=== PATIENT | male | born 1960 | race African-American/Black ===

== ENCOUNTER 2021-04-29 18:21 | Emergency (ER) | payer OTHER ==
--- OUTSIDE RECORDS SUMMARY | 2021-04-29 18:27 | XMS REPORT | Continuity of Care Document ---
:1960 Author Organization [facility] t Address [address] [place] [address] [address] [place] [address] Care Team Providers Name Role Phone Javan Mills Jr. Primary Care Physician Elpidio MACARIO L Attending Clinician Unavailable Padma DENISE Attending Clinician Norman OLMEDO Attending Clinician PADMA Attending Clinician Unavailable Joe WASHINGTON Attending Clinician Poonam WASHINGTON Attending Clinician Torri WASHINGTON Attending Clinician JOE Attending Clinician Unavailable Nayeli Holguin Attending Clinician Doctor Unassigned, Name Attending Clinician Unavailable Renetta WASHINGTON S Attending Clinician Trish JACKSON Attending Clinician Unavailable Norman OLMEDO Admitting Clinician Torri WASHINGTON Admitting Clinician Payers Payer Name Policy Type Policy Number Effective Date Expiration Date S ource Problems Condition Condition Condition Status Onset Resolution Last Treating Co mments Source Name Details Category Date Date Treatment Clinician Date Cellulitis Cellulitis Disease Active 2020-04 U nivers of left of left 0-14 ity of foot foot 00:00: [address] Cellulitis Cellulitis Disease Active 2020-0 U nivers 6-21 ity of 00:00: [address] No known No known Disease Unive rs active active ity of problems problems [facility] Allergies, Adverse Reactions, Alerts Allergy Allergy Status Severity Reaction(s) Onset Inactive Treating Comm ents Source Name Type Date Date Clinician NO KNOWN Drug Active Univers ALLERGIE Class ity of S [facility] Social History Social Habit Start Date Stop Date Quantity Comments Source Exposure to Not sure University of SARS-CoV-2 [facility] (event) [place] Alcohol intake 2021-01-15 2021-01-15 Ex-drinker [facility] 00:00:00 00:00:00 (finding) [facility] Tobacco use and 2020-09-21 2020-09-21 Never used Universit y of exposure 00:00:00 00:00:00 [facility] Tobacco Comment 2020-09-21 2020-09-21 1 pk aday Universit y of 00:00:00 00:00:00 [facility] Sex Ass[birth year] At [birth year] Universit y of 00:00:00 00:00:00 [facility] Smoking Status Start Date Stop Date Source Current every day smoker 2020-09-21 00:00:00 Uni versity of [facility] Unknown if ever smoked Universit y of [facility] Medications Ordered Filled Start Stop Current Ordering Indication Dosage Frequency Signature Comments Components Source Medication Medication Date Date Medication? Clinician (SIG) Name Name ergocalcife 2020-04- No [id number] Take 1 Univers rol, 0-22 11-14 capsule by ity of vitamin d2, 00:00[place] 05[place] 1,250 mcg 00 :00 weekly for Medi hilary (50,000 4 doses. Branch unit) capsule ergocalcife 2020-04- No [id number] Take 1 Univers rol, 0-22 11-14 capsule by ity of vitamin d2, 00:00: 05:59 [place] 1,250 mcg 00 :00 weekly for Medi hilary (50,000 4 doses. Branch unit) capsule terbinafine 2020-04 Yes Topical, Un liana HCL 0-19 BID, First ity of (LAMISIL) 1 01:00: dose on [place] as % cream 00 [facility] 01/18/21 Branch at 2000, Until Discontinu ed, Routine amLODIPine 2020-04- No [id number] 5mg Take 1 Univers 5 mg tablet 0-19 11-19 tablet by it y of 00:00: 05:59 mouth [place] 00 :00 daily for Medical 30 days. Branch hydroCHLORO 2020-04- No [id number] 25mg Take 1 Univers thiazide 25 0-19 11-19 tablet by it y of mg tablet 00:00: 05:59 mouth [place] 00 :00 daily for Medical 30 days. Branch lisinopriL 2020-04- No [id number] 20mg Take 1 Univers 20 mg 0-19 11-19 tablet by ity of tablet 00:00: 05:59 mouth [place] 00 :00 daily for Medical 30 days. Branch aspirin 81 2020-04- No [id number] 81mg Take 1 Univers mg chewable 0-19 11-19 tablet by it y of tablet 00:00: 05:59 mouth [place] 00 :00 daily with Medical breakfast Reading for 30 days. amLODIPine 2020-04- No [id number] 5mg Take 1 Univers 5 mg tablet 0-19 11-19 tablet by it y of 00:00: 05:59 mouth [place] 00 :00 daily for Medical 30 days. Branch hydroCHLORO 2020-04- No [id number] 25mg Take 1 Univers thiazide 25 0-19 11-19 tablet by it y of mg tablet 00:00: 05:59 mouth [place] 00 :00 daily for Medical 30 days. Branch lisinopriL 2020-04- No [id number] 20mg Take 1 Univers 20 mg 0-19 11-19 tablet by ity of tablet 00:00: 05:59 mouth [place] 00 :00 daily for Medical 30 days. Branch aspirin 81 2020-04- No [id number] 81mg Take 1 Univers mg chewable 0-19 11-19 tablet by it y of tablet 00:00: 05:59 mouth [place] 00 :00 daily with Medical breakfast Reading for 30 days. sodium 2020-04 Yes [id number] Apply to U nivers hypochlorit 0-18 area(s) 2 ity of e 0.25% 00:00: (two) [place] solution 00 times Medical daily. Branch sodium 2020-04 Yes [id number] Apply to U nivers hypochlorit 0-18 area(s) 2 ity of e 0.25% 00:00: (two) [place] solution 00 times Medical daily. Branch atorvastati 2020-04- No [id number] 40mg Take 1 Univers n 40 mg 0-18 11-18 tablet by ity of tablet 00:00: 05:59 mouth at [place] 00 :00 bedtime Medical for 30 Branch days. atorvastati 2020-04- No [id number] 40mg Take 1 Univers n 40 mg 0-18 11-18 tablet by ity of tablet 00:00: 05:59 mouth at [place] 00 :00 bedtime Medical for 30 Branch days. terbinafine 2020-04- No [id number] Apply to Univers HCL 1 % 0-18 11-02 area(s) 2 ity of cream 00:00: 04:59 (two) [place] 00 :00 times Medical daily for Branch 14 days. terbinafine 2020-04- No [id number] Apply to Univers HCL 1 % 0-18 11-02 area(s) 2 ity of cream 00:00: 04:59 (two) [place] 00 :00 times Medical daily for Branch 14 days. cephALEXin 2020-04- No [id number] 500mg Take 1 Univers 500 mg 0-18 10-24 capsule by ity of capsule 00:00: 04:59 mouth [place] 00 :00 every 6 Medical (six) Branch hours for 5 days. cephALEXin 2020-04- No [id number] 500mg Take 1 Univers 500 mg 0-18 10-24 capsule by ity of capsule 00:00: 04:59 mouth [place] 00 :00 every 6 Medical (six) Branch hours for 5 days. nicotine 2020-04 Yes 1{patch 1 Patch, Un liana (NICODERM) 0-17 } Topical, ity o f 21 mg/24 hr 03:00: Administer [place] patch 1 00 over 24 Medical Patch Hours, Branch Q24H, First dose (after last modificati on) on 01/16/21 at 2200, Until Discontinu ed, Routine clotrimazol 2020-04- No Topical, U nivers e 0-16 10-16 QHS, First ity of (LOTRIMIN) 02:00: 23:31 dose on [place] 1 % topical 00 :48 Fri Medical cream 01/15/21 Branch at 2100, Until Discontinu ed, Routine magnesium 2020-04- No 400mg 400 mg, Uni vers oxide 0-16 10-20 Oral, BID, ity of (MAG-OX 01:00: 00:59 8 doses, [place] 400) tablet 00 :00 First dose Me dical 400 mg on Mon01/15/21 at 2000, Last dose on Mon01/19/21 at 0800, Routine cephALEXin 2020-04 Yes 500mg 500 mg, Uni vers (KEFLEX) 0-15 Oral, Q6H ity of capsule 500 21:00: ABX, First [place] mg 00 dose on Medical Mon01/15/21 at 1600, Until Discontinu ed, MADDI
Re ason for Anti-Infec tive: Documented Infection< br>Documen evelia Infection Site: Skin / Soft Tissue<br& gt;Duratio n of Therapy: 10 days lactobacill 2020-04 Yes .5mg 0.5 mg, Uni vers us 0-15 Oral, ity of acidophilus 14:00: DAILY, [place] tablet 0.5 00 First dose Med ical mg on Mon01/15/21 at 0900, Until Discontinu ed, Routine enoxaparin 2020-04 Yes 30mg 30 mg, Unive rs (LOVENOX) 0-15 Subcutaneo ity of injection 14:00: [place], DAILY, [place] 30 mg 00 First dose Medical on Mon01/15/21 at 0900, Until Discontinu ed, Routine hydroCHLORO 2020-04 Yes 25mg 25 mg, Univ ers thiazide 0-15 Oral, ity of (ESIDRIX) 14:00: DAILY, [place] tablet 25 00 First dose Medi hilary mg on Mon01/15/21 at 0900, Until Discontinu ed, Routine lisinopriL 2020-04 Yes 20mg 20 mg, Unive rs (PRINIVIL,Z 0-15 Oral, ity of ESTRIL) 14:00: DAILY, [place] tablet 20 00 First dose Medi hilary mg on Mon01/15/21 at 0900, Until Discontinu ed, Routine amLODIPine 2020-04 Yes 10mg 10 mg, Unive rs (NORVASC) 0-15 Oral, ity of tablet 10 14:00: DAILY, [place] mg 00 First dose Medical on Mon Branch 01/15/21 at 0900, Until Discontinu ed, Routine ergocalcife 2020-04 Yes [id number] 50,000 Un liana rol 0-15 Units, ity of (vitamin 14:00: Oral, [place] d2) 00 QWEEKLY, Medical (CALCIFEROL First dose Br anch ) capsule on Mon 50,000 01/15/21 Units at 0900, Until Discontinu ed, Routine sodium 2020-04 Yes Topical, Univers hypochlorit 0-15 BID, First it y of e 0.25% 13:45: dose on (DAKIN'S 00 Mon Medical SOLUTION) 01/15/21 Branch solution at 0845, Until Discontinu ed, Routine docusate 2020-04 Yes 100mg 100 mg, Unive rs (COLACE) 0-15 Oral, BID, ity o f capsule 100 13:00: First dose [place] mg 00 on Mon Medical 01/15/21 Branch at 0800, Until Discontinu ed, Routine vancomycin 2020-04- No 1000mg 1,000 mg, Univers (VANCOCIN) 0-15 10-15 IV ity of 1,000 mg in 11:00: 20:05 Piggyback, [place] NaCl 0.9% 00 :32 Q12H ABX, Medic al (NS) 250 mL First dose Br anch VIAL-MATE (after IV last piggyback reorder) on Mon01/15/21 at 0600, Until Discontinu ed, Administer over 60 Minutes, 250 mL
Reas on for Anti-Infec tive: Documented Infection< br>Documen evelia Infection Site: Skin / Soft Tissue
Duration of Therapy: 7 days nicotine 2020-04- No 1{patch 1 Patch, U nivers (NICODERM) 0-15 -17 } Topical, ity of 21 mg/24 hr 05:45: 02:42 Administer [place] patch 1 00 :59 over 24 Medical Patch Hours, Branch Q24H, First dose on Mon01/15/21 at 0045, Until Discontinu ed, Routine cyanocobala 2020-04 Yes 1000ug 1,000 mcg, Univers min 0-15 Intramuscu ity of (VITAMIN 05:30: lar, Q24H, [place] B12) 00 First dose Medical injection on Mon Branch 1,000 mcg 01/15/21 at 0030, Until Discontinu ed, Routine ceFEPIme 2020-04 No 2000mg 2,000 mg, U nivers (MAXIPIME) 0-15 10-15 IV ity of 2,000 mg in 05:30: 20:05 Piggyback, [place] NaCl 0.9% 00 :32 Q12H ABX, Medic al (NS) 100 mL First dose Br anch MINI-BAG on Mon01/15/21 at 0030, Until Discontinu ed, Administer over 30 Minutes, 100 mL
Reas on for Anti-Infec tive: Empiric Therapy for Suspected Infection& lt;br>Empi ileana Therapy Site: Wound
D uration of therapy: 7 days amLODIPine 2020-04 No 2.5mg 2.5 mg, Un liana (NORVASC) 0-15 10-15 Oral, ity of tablet 2.5 05:30: 05:45 ONCE, 1 [place] mg 00 :00 dose, On Medical Fri Branch 01/15/21 at 0030, MADDI lisinopriL 2020-04- No 10mg 10 mg, Univ ers (PRINIVIL,Z 0-15 10-15 Oral, ity of ESTRIL) 05:30: 05:46 ONCE, 1 [place] tablet 10 00 :00 dose, On Medica l mg Mon Branch 01/15/21 at 0030, MADDI aspirin 2020-04 Yes 81mg 81 mg, Univers chewable 0-15 Oral, QAM ity of tablet 81 04:45: WITH [place] mg 00 BREAKFAST, Medical First dose Branch on Mon01/14/21 at 2345, Until Discontinu ed, Routine ondansetron 2020-04 Yes 4mg 4 mg, Slow Univers (ZOFRAN 0-15 IV Push, ity of (PF)) 04:29: Q6HPRN, [place] injection 4 00 Starting Medi hilary mg on [place] Branch 01/14/21 at 2329, Until Discontinu ed, Routine, Nausea and Vomiting (N/V) hydralAZINE 2020-04 Yes 10mg 10 mg, Univ ers (APRESOLINE 0-15 Slow IV ity o f ) injection 04:24: Push, [place] 10 mg 57 Q4HPRN, Medical Starting Branch on Mon01/14/21 at 2324, Until Discontinu ed, Routine, SBP > 190 or DBP > 110
Ind ication: Hypertensi ve Emergency vancomycin 2020-04- No 15mg/kg 1,000 mg Univers (VANCOCIN) 0-15 10-15 (rounded ity of 1,000 mg in 00:15: 00:30 from [place] NaCl 0.9% 00 :00 1,000.5 mg Medi hilary (NS) 250 mL = 15 mg/kg Br anch VIAL-MATE ?66.7 kg), IV IV piggyback Piggyback, ONCE, 1 dose, On [place] 01/14/21 at 1915, Administer over 60 Minutes, 250 mL
Reas on for Anti-Infec tive: Documented Infection& lt;br>Docu mented Infection Site: Skin / Soft Tissue
Duration of Therapy: 7 days aspirin 81 0 Yes [id number] 81mg Take 1 Univers mg chewable 6-25 tablet by ity of tablet 00:00: mouth [place] 00 daily. Medical Branch coenzyme Yes [id number] 100mg Take 1 U nivers Q10 100 mg 6-25 capsule by ity of softgel 00:00: mouth [place] 00 daily. Medical Branch enoxaparin Yes [id number] 40mg inject 0.4 Univers 40 mg/0.4 6-25 mL under ity of mL 00:00: the skin [place] injection 00 daily. Medical Branch NaCl 0.9% Yes [id number] 2g Infuse 2 g Univers (NS) PgBk 6-25 every 12 ity of 100 mL with 00:00: (twelve) [place] ceFEPIme 2 00 hours. Medical gram SolR 2 Branch g cyanocobala Yes [id number] 1000ug inject 1 Univers min 1,000 6-25 mL under ity of mcg/mL 00:00: the skin [place] injection 00 every 24 Medica l (twenty-fo Branch ur) hours. cholecalcif Yes [id number] 2000U Take 2 Univers khalif, 6-25 tablets by ity of vitamin D3, 00:00: mouth [place] 25 mcg 00 daily. Medical (1,000 Branch unit) tablet enoxaparin 2020- No [id number] 40mg inject 0.4 Univers 40 mg/0.4 6-25 10-14 mL under ity o f mL 00:00: 00:00 the skin [place] injection 00 :00 daily. Medical Branch NaCl 0.9% 2020- No [id number] 2g Infuse 2 g Univers (NS) PgBk 6-25 10-14 every 12 ity o f 100 mL with 00:00: 00:00 (twelve) [place] ceFEPIme 2 00 :00 hours. Medical gram SolR 2 Branch g cyanocobala 2020- No [id number] 1000ug inject 1 Univers min 1,000 6-25 10-14 mL under ity o f mcg/mL 00:00: 00:00 the skin [place] injection 00 :00 every 24 Medica l (twenty-fo Branch ur) hours. cholecalcif 2020- No [id number] 2000U Take 2 Univers khalif, 6-25 10-14 tablets by ity of vitamin D3, 00:00: 00:00 mouth [place] 25 mcg 00 :00 daily. Medical (1,000 Branch unit) tablet aspirin 81 2020- No [id number] 81mg Take 1 Univers mg chewable 6-25 10-14 tablet by it y of tablet 00:00: 00:00 mouth [place] 00 :00 daily. Medical Branch coenzyme 2020- No [id number] 100mg Take 1 Univers Q10 100 mg 6-25 10-14 capsule by it y of softgel 00:00: 00:00 mouth [place] 00 :00 daily. Medical Branch lidocaine 2020- No 5mL 5 mL, Univer s 1% (PF) 09-24 06-24 Subcutaneo ity o f (XYLOCAINE) 13:15: 13:15 , ONCE, [place] injection 5 00 :00 1 dose, Medic al mL [place] Branch 09/24/20 at 0815, Routine NaCl 0.9% Yes 10mL 10 mL, Univer s (NS) 624 Slow IV ity of injection 13:00: Push, PRN, [place] 10 mL 27 Starting Medical [place] Branch 09/24/20 at 0800, Until Discontinu ed, Routine, line maintenanc e atorvastati Yes [id number] 40mg Take 1 Univers n 40 mg 6-24 tablet by ity of tablet 00:00: mouth at [place] 00 bedtime. Medical Branch vancomycin/ Yes [id number] 1250mg 1,250 mg Univers 0.9 % sod 6-24 by IV ity of chloride 00:00: Infusion [place] (VANCOMYCIN 00 route Medical 1250 MG IN every 12 Branc h NS 250 ML) (twelve) 1.25 hours. gram/250 mL Soln 0.9 % Yes [id number] 10mL Inject 10 Un liana sodium 6-24 mL as ity of chloride 00:00: directed [place] (NACL 0.9%, 00 as needed Med ical NS,) (line Branch injection maintenanc e). sodium Yes [id number] Apply to U nivers hypochlorit 6-24 area(s) 2 ity of e 0.25% 00:00: (two) [place] solution 00 times Medical daily. Branch lactobacill Yes [id number] .5mg Take 1 Univers us 6-24 tablet by ity of acidophilus 00:00: mouth 2 [place] 00 (two) Medical times Branch daily. acetaminoph 2021- No [id number] 650mg Take 2 Univers en 325 mg 6-24 06-25 tablets by ity of tablet 00:00: 04:59 mouth [place] 00 :00 every 6 Medical (six) Branch hours as needed for Pain (scale 1-3). atorvastati 2020- No [id number] 40mg Take 1 Univers n 40 mg 6-24 10-18 tablet by ity of tablet 00:00: 00:00 mouth at [place] 00 :00 bedtime. Medical Branch acetaminoph 2020- No [id number] 650mg Take 2 Univers en 325 mg 6-24 10-14 tablets by ity of tablet 00:00: 00:00 mouth [place] 00 :00 every 6 Medical (six) Branch hours as needed for Pain (scale 1-3). sodium 2020- No [id number] Apply to Univers hypochlorit 6-24 10-14 area(s) 2 it y of e 0.25% 00:00: 00:00 (two) [place] solution 00 :00 times Medical daily. Branch lactobacill 2020- No [id number] .5mg Take 1 Univers us 09-24 10-14 tablet by ity of acidophilus 00:00: 00:00 mouth 2 [place] 00 :00 (two) Medical times Branch daily. vancomycin/ 2020- No [id number] 1250mg 1,250 mg Univers 0.9 % sod 09-24 10-14 by IV ity of chloride 00:00: 00:00 Infusion [place] (VANCOMYCIN 00 :00 route Medical 1250 MG IN every 12 Branc h NS 250 ML) (twelve) 1.25 hours. gram/250 mL Soln 0.9 % 2020- No [id number] 10mL Inject 10 U nivers sodium 09-24 10-14 mL as ity of chloride 00:00: 00:00 directed [place] (NACL 0.9%, 00 :00 as needed Med ical NS,) (line Branch injection [facility]). vancomycin Yes 1250mg 1,250 mg, Univers 1250 mg in 09-23 IV ity of NS 250 mL 16:45: Infusion, [place] as RTU IV 00 Q12H ABX, Medical Piggyback First dose Bran ch 1,250 mg on Mon09/23/20 at 1145, Until Discontinu ed
Reas on for Anti-Infec tive: Documented Infection< br>Documen evelia Infection Site: Skin / Soft Tissue
Duration of Therapy: 14 days atorvastati Yes 40mg 40 mg, Univ ers n (LIPITOR) 09-23 Oral, QHS, it y of tablet 40 02:00: First dose [place] mg 00 on Mon Medical 09/22/20 at Branch 2100, Until Discontinu ed, Routine cyanocobala Yes 1000ug 1,000 mcg, Univers min 09-22 Subcutaneo ity of (VITAMIN 14:45: us, Q24H, [place] B12) 00 First dose Medical injection on Mon Branch 1,000 mcg 09/22/20 at 0945, Until Discontinu ed, Routine coenzyme Yes 100mg 100 mg, Unive rs Q10 (CO 09-22 Oral, ity of Q-10) 14:00: DAILY, [place] softgel 100 00 First dose Me dical mg on [facility] 09/22/20 at 0900, Until Discontinu ed, Routine aspirin 2020-0 Yes 81mg 81 mg, Univers chewable 09-22 Oral, ity of tablet 81 14:00: DAILY, [place] mg 00 First dose Medical on [facility] 09/22/20 at 0900, Until Discontinu ed, Routine lisinopriL 2020-0 Yes 20mg 20 mg, [facility] (PRINIVIL,Z 09-22 Oral, ity of ESTRIL) 14:00: DAILY, [place] tablet 20 00 First dose Medi hilary mg on [facility] 09/22/20 at 0900, Until Discontinu ed, Routine hydroCHLORO 2020-0 Yes 25mg 25 mg, Univ ers thiazide 09-22 Oral, QAM, ity o f (ESIDRIX) 14:00: First dose [place] tablet 25 00 on [facility] Medical mg 09/22/20 at Branch 0900, Until Discontinu ed, Routine amLODIPine 2020-0 Yes 10mg 10 mg, [facility] (NORVASC) 09-22 Oral, ity of tablet 10 14:00: DAILY, [place] mg 00 First dose Medical on [facility] 09/22/20 at 0900, Until Discontinu ed, Routine cholecalcif 2020-0 Yes 2000U 2,000 Univ ers khalif 09-22 Units, ity of (vitamin 13:45: Oral, [place] D3) tablet 00 DAILY, Medical 2,000 Units First dose Br anch on [facility] 09/22/20 at 0845, Until Discontinu ed, Routine lactobacill 2020-0 Yes .5mg 0.5 mg, Uni vers us 09-22 Oral, BID, ity of acidophilus 00:15: First dose [place] tablet 0.5 00 on [facility] Medical mg 09/21/20 at Branch 1915, Until Discontinu ed, Routine sodium 2020-0 Yes Topical, Univers hypochlorit 09-21 BID, First it y of e 0.25% 22:45: dose on [place] (DAKIN'S 00 Mon Medical SOLUTION) 09/21/20 at [facility] solution 1745, Until Discontinu ed, Routine enoxaparin 2020-0 Yes 40mg 40 mg, Unive rs (LOVENOX) 09-21 Subcutaneo ity of injection 22:00: us, DAILY, [place] 40 mg 00 First dose Medical on Mon Branch 09/21/20 at 1700, Until Discontinu ed, Routine ceFEPIme 2020- No 2000mg 2,000 mg, U nivers (MAXIPIME) 09-21 IV ity of 2,000 mg in 20:15: 20:14 Piggyback, [place] NaCl 0.9% 00 :00 Q12H ABX, Medic al (NS) 100 mL 14 doses, [facility] MINI-BAG First dose on Mon09/21/20 at 1515, Last dose on Mon09/28/20 at 0315, 100 mL
Reas on for Anti-Infec tive: Documented Infection< br>Documen evelia Infection Site: Skin / Soft Tissue
Duration of Therapy: 7 days piperacilli 2020- No 3.375g 3.375 g, Univers n-tazobacta 09-21 IV ity of m (ZOSYN) 17:15: 16:48 Piggyback, [place] 3.375 g in 00 :00 ONCE, 1 Medica l NaCl 0.9% dose, [facility] Bran h (NS) 100 mL 09/21/20 at MINI-BAG 1215, 100 mL
Reas on for Anti-Infec tive: Documented Infection< br>Documen evelia Infection Site: Skin / Soft Tissue
Duration of Therapy: Other (see Comments) acetaminoph Yes 650mg 650 mg, Un liana en 09-21 Oral, ity of (TYLENOL) 16:45: Q6HPRN, [place] tablet 650 46 Starting Medic al mg Mon Branch 09/21/20 at 1145, Until Discontinu ed, Routine, Pain (scale 1-3) vancomycin 2020- No 15mg/kg 1,000 mg Univers (VANCOCIN) 09-21 (rounded ity of 1,000 mg in 16:45: 14:02 from 1,020 [place] NaCl 0.9% 00 :04 mg = 15 Medical (NS) 250 mL mg/kg ?68 [facility] VIAL-MATE kg), IV IV Piggyback, piggyback Q12H ABX, First dose on Mon09/21/20 at 1145, Until Discontinu ed, 250 mL
Reas on for Anti-Infec tive: Documented Infection< br>Docu mented Infection Site: Skin / Soft Tissue
Duration of Therapy: 14 days lisinopril 2018-0 Yes 20mg Take 1 Unive rs 20 mg 3-09 tablet by ity of tablet 00:00: mouth [place] 00 daily. Medical Branch hydroCHLORO 2018-0 Yes 25mg Take 1 Univ ers thiazide 25 3-09 tablet by ity of mg tablet 00:00: mouth [place] 00 every Medical morning. Branch amLODIPine 2018-0 Yes 10mg Take 1 Unive rs 10 mg 3-09 tablet by ity of tablet 00:00: mouth [place] 00 daily. Medical Branch lisinopril 2018-0 Yes 20mg Take 1 Unive rs 20 mg 3-09 tablet by ity of tablet 00:00: mouth [place] 00 daily. Medical Branch hydroCHLORO 2018-0 Yes 25mg Take 1 Univ ers thiazide 25 3-09 tablet by ity of mg tablet 00:00: mouth [place] 00 every Medical morning. Branch amLODIPine 2018-0 Yes 10mg Take 1 Unive rs 10 mg 3-09 tablet by ity of tablet 00:00: mouth [place] 00 daily. Medical Branch lisinopril 2018-0 Yes 20mg Take 1 Unive rs 20 mg 3-09 tablet by ity of tablet 00:00: mouth [place] 00 daily. Medical Branch hydroCHLORO 2018-0 Yes 25mg Take 1 Univ ers thiazide 25 3-09 tablet by ity of mg tablet 00:00: mouth [place] 00 every Medical morning. Branch amLODIPine 2018-0 Yes 10mg Take 1 Unive rs 10 mg 3-09 tablet by ity of tablet 00:00: mouth [place] 00 daily. Medical Branch lisinopril 2018-0 2020- No 20mg Take 1 Univ ers 20 mg 3-09 06-24 tablet by ity of tablet 00:00: 00:00 mouth [place] 00 :00 daily. Medical Branch hydroCHLORO 2018-0 2020- No 25mg Take 1 Uni vers thiazide 25 3-09 06-24 tablet by it y of mg tablet 00:00: 00:00 mouth [place] 00 :00 every Medical morning. Branch amLODIPine 2017-0 2020- 10mg Take 1 Univ ers 10 mg 06-09 tablet by ity of tablet 00:00: 00:00 mouth [place] 00 :00 daily. Medical Branch Immunizations Ordered Filled Immunization Date Status Comments Sour e Immunization Name Name Td 2016-04-13 Completed University of 00:00:00 [facility] Branch Td 2016-04-13 Completed University of 00:00:00 [facility] Branch Td 2016-04-13 Completed University of 00:00:00 [place] [facility] Td 2016-04-13 Completed University of 00:00:00 [place] [facility] Td 2016-04-13 Completed University of 00:00:00 [facility] Td 2016-04-13 Completed University of 00:00:00 [facility] Vital Signs Vital Name Observation Time Observation Value Comments Source Systolic blood 2021-01-18 16:00:00 108 mm[Hg] Univer sity of pressure [facility] Diastolic blood 2021-01-18 16:00:00 74 mm[Hg] Unive rsity of [facility] Heart rate 2021-01-18 16:00:00 72 /min [facility] Body temperature 2021-01-18 16:00:00 36.17 Cristiana [facility] Respiratory rate 2021-01-18 16:00:00 16 /min [facility] Oxygen saturation in 2021-01-18 16:00:00 99 /min [facility] Arterial blood by [facility] Pulse oximetry Branch Body weight 2021-01-17 08:45:00 64.439 kg [facility] BMI 2021-01-17 08:45:00 20.38 kg/m2 [facility] Body height 2021-01-15 03:21:00 177.8 cm [facility] Systolic blood 2020-09-25 09:00:00 133 mm[Hg] Univer sity of [facility] Diastolic blood 2020-09-25 09:00:00 75 mm[Hg] Unive rsity of [facility] Heart rate 2020-09-25 09:00:00 61 /min [facility] Body temperature 2020-09-25 09:00:00 36.72 Cristiana [facility] ersity of [place] [facility] Respiratory rate 2020-09-25 09:00:00 18 /min Univ ersity of [place] [facility] Oxygen saturation in 2020-09-25 09:00:00 98 /min University of Arterial blood by [facility] Pulse oximetry Branch Body weight 2020-09-22 08:15:00 63.458 kg [facility] ty [facility] [place] [facility] BMI 2020-09-22 08:15:00 20.07 kg/m2 [facility] [place] [facility] Body height 2020-09-21 17:30:00 177.8 cm [facility] [place] [facility] Heart rate 2020-07-10 22:07:00 55 /min [facility] [place] [facility] Body temperature 2020-07-10 22:07:00 36.67 Cristiana Univ [facility] Respiratory rate 2020-07-10 22:07:00 14 /min [facility] Body weight 2020-07-10 22:07:00 68.04 kg [facility] BMI 2020-07-10 22:07:00 21.52 kg/m2 [facility] Oxygen saturation in 2020-07-10 22:07:00 100 /min [facility] Arterial blood by [facility] Pulse oximetry Branch Systolic blood 2020-06-28 04:00:00 134 mm[Hg] [facility] Diastolic blood 2020-06-28 04:00:00 95 mm[Hg] [facility] [place] [facility] Heart rate 2020-06-28 04:00:00 61 /min [facility] Body temperature 2020-06-28 04:00:00 36.11 Cristiana [facility] Respiratory rate 2020-06-28 04:00:00 12 /min [facility] Oxygen saturation in 2020-06-28 04:00:00 100 /min [facility] Arterial blood by [facility] Pulse oximetry Branch Body height 2020-06-28 03:00:00 177.8 cm [facility] Body weight 2020-06-28 03:00:00 68.04 kg [facility] BMI 2020-06-28 03:00:00 21.52 kg/m2 [facility] Procedures Procedure Date / Time Performing Clinician Source Performed BASIC METABOLIC PANEL 2021-01-18 10:14:00 Fredy Austin [facility] (NA, K, CL, CO2, GLUCOSE, Medica l Branch BUN, CREATININE, CA) CBC WITH DIFF 2021-01-18 10:14:00 [facility] CBC WITH DIFF 2021-01-17 10:41:00 [facility] MAGNESIUM 2021-01-16 09:34:00 Torri [facility] COMP. METABOLIC PANEL 2021-01-16 09:34:00 Torri jeremiah [facility] ([id number]) [facility] CBC WITH DIFF 2021-01-16 09:34:00 [facility] N-TERMINAL PRO-BNP 2021-01-16 09:34:[address] [facility] URINALYSIS 2021-01-16 03:16:00 Pop Mattson [facility] LOWER EXTREMITY ARTERIAL 2021-01-15 18:06:37 Julianne Wild [facility] DUPLEX BILATERAL - BY Medical Br anch VASCULAR LAB VITAMIN B12, LEVEL 2021-01-15 09:50:[address] [facility] FERRITIN SERUM 2021-01-15 09:49:00 Julianne Wild [facility] FOLATE 2021-01-15 09:49:00 Torri jeremiah [facility] SEDIMENTATION RATE 2021-01-15 09:49:[address] [facility] C-REACTIVE PROTEIN 2021-01-15 09:48:[address] [facility] LIPID PANEL ([id number])(TOTAL 2021-01-15 09:48:[address] [facility], HDL) VITAMIN D, 25-OH 2021-01-15 09:48:00 Julianne Wild [facility] THYROID STIMULATING 2021-01-15 09:47:[address] [facility] HORMONE [facility] MAGNESIUM 2021-01-15 09:46:00 Torri [facility] COMP. METABOLIC PANEL 2021-01-15 09:46:00 Torri [facility] ([id number]) Medical Branch CBC WITH DIFF 2021-01-15 09:46:00 Torri [facility] N-TERMINAL PRO-BNP 2021-01-15 09:46:00 Torri [facility] PROCALCITONIN 2021-01-15 09:46:00 Torri [facility] ISRAEL MULTI LEVEL - BY 2021-01-14 22:15:00 [facility] LACTIC ACID WHOLE BLOOD 2021-01-14 21:31:00 Pop Mattson [facility] BLOOD CULTURE SCREEN 2021-01-14 21:30:00 [facility] 2021-01-14 20:18:00 Torri [facility] URIC ACID 2021-01-14 20:18:00 Torri [facility] MAGNESIUM 2021-01-14 20:18[facility] 2021-01-14 [id number] (ALB,T.PRO,BILI Medical Branch T,BU/BC,ALT,AST,ALK PHOS) BASIC METABOLIC PANEL 2021-01-14 20:18:00 Pop Mattson [facility] (NA, K, CL, CO2, GLUCOSE, Medica l Branch BUN, CREATININE, CA) CBC WITH DIFF 2021-01-14 20:18[facility]OGLOBIN 2021-01-14 20:18:[facility] N-TERMINAL PRO-BNP 2021-01-14 20:18:00 Torri [facility] COVID-19 (ID NOW RAPID 2021-01-14 20:18[facility] LAB ONLY COVID 2021-01-14 20:18:00 Pop Mattson [facility] INTERPRETATION [facility] CONSENT/REFUSAL FOR 2021-01-14 19:22:31 Doctor UnassGina greco [facility] DIAGNOSIS AND TREATMENT [place] [facility] VANCOMYCIN TROUGH 2020-09-25 03:27:00 Norman [facility] XR CHEST 1 VW 2020-09-24 16:22:22 [facility] COMP. METABOLIC PANEL 2020-09-24 08:04:00 Torri jeremiah [facility] ([id number]) [facility] CBC WITH DIFF 2020-09-24 08:04:00 [facility] COMP. METABOLIC PANEL 2020-09-23 08:10:00 Julianne Wild [facility] ([id number]) [facility] CBC WITH DIFF 2020-09-23 08:10:00 Torri jeremiah [facility] VANCOMYCIN TROUGH 2020-09-23 03:49:00 Chelly Menendez [facility] ISRAEL MULTI LEVEL - BY 2020-09-22 16:52:59 Dipak Levin [facility] VASCULAR LAB Medical Branch MAGNESIUM 2020-09-22 08:44:00 Torri [facility]remiah [facility] COMP. METABOLIC PANEL 2020-09-22 08:44:00 Torri jeremiah [facility] ([id number]) [facility] CBC WITH DIFF 2020-09-22 08:44:00 Dipak Levin [facility] N-TERMINAL PRO-BNP 2020-09-22 08:44:[address] [facility] VITAMIN B12, LEVEL 2020-09-22 01:11:[address] [facility] C-REACTIVE PROTEIN 2020-09-22 01:11:[address] [facility] SEDIMENTATION RATE 2020-09-22 01:11:[address] [facility] PROTHROMBIN TIME / INR 2020-09-22 01:11:00 Julianne Wild [facility] VITAMIN D, 25-OH 2020-09-22 01:11:00 Torri [facility] PROCALCITONIN 2020-09-22 01:11:00 Torri [facility] DUPLEX VENOUS LEG LEFT - 2020-09-21 20:06:22 Dipak Levin [facility] BY VASCULAR LAB Medical Branch LOWER EXTREMITY ARTERIAL 2020-09-21 20:06:16 Dipak Levin [facility] DUPLEX BILATERAL - BY Medical Br anch VASCULAR LAB LACTIC ACID WHOLE BLOOD 2020-09-21 19:12:00 Ken Diaz [facility] CT FOOT LEFT WO CONTRAST 2020-09-21 17:10:00 Dipak Levin [facility] XR FOOT 3+ VW BILATERAL 2020-09-21 15:14:49 Ken Diaz [facility] COVID-19 (ID NOW RAPID 2020-09-21 15:04:00 Ken Diaz [facility] TESTING) Medical Branch LAB ONLY COVID 2020-09-21 15:04:00 Ken Diaz [facility] INTERPRETATION [facility] BLOOD CULTURE SCREEN 2020-09-21 15:02:00 Ken Diaz [facility] PHOSPHORUS 2020-09-21 15:02:00 Torri [facility] CREATINE KINASE 2020-09-21 15:02:00 Torri [facility] URIC ACID 2020-09-21 15:02:00 Torri [facility] MAGNESIUM 2020-09-21 15:02:00 Torri [facility] THYROID STIMULATING 2020-09-21 15:02:[address] [facility] HORMONE [facility] HEPATIC FUNCTION PANEL 2020-09-21 15:02:00 Ken Diaz [facility] ([id number]) (ALB,T.PRO,BILI Medical Branch T,BU/BC,ALT,AST,ALK PHOS) BASIC METABOLIC PANEL 2020-09-21 15:02:00 Ken Diaz [facility] (NA, K, CL, CO2, GLUCOSE, Medica l Branch BUN, CREATININE, CA) LIPID PANEL ([id number])(TOTAL 2020-09-21 15:02:[address] [facility] CHOLESTEROL, [facility] TRIGLYCERIDES, HDL) CBC WITH DIFF 2020-09-21 15:02:00 Ken Diaz [facility] GLYCOSYLATED HEMOGLOBIN 2020-09-21 15:02:00 Dipak Levin [facility] (A1C) [facility] N-TERMINAL PRO-BNP 2020-09-21 15:02:[address] [facility] LACTIC ACID WHOLE BLOOD 2020-09-21 15:02:00 Ken Diaz [facility] CONSENT/REFUSAL FOR 2020-09-21 14:05:44 Doctor Unassigned, [facility] DIAGNOSIS AND TREATMENT [place] [facility] NOTICE OF PRIVACY 2020-07-10 21:21:32 Doctor Unassfannie, [facility] PRACTICES [place] [facility] CONSENT/REFUSAL FOR 2020-07-10 21:21:13 Doctor Unassigned, [facility] DIAGNOSIS AND TREATMENT [place] [facility] ED LACERATION REPAIR 2020-06-28 03:47:00 Hardik Jackson [facility] Encounters Start End Encounter Admission Attending Care Care Encounter Source Date/Time Date/Time Type Type Clinicians Facility Department ID 2021-01-20 2021-01-20 Transition Liat Magallanes [id number] Univers 00:00:00 00:00:00 of Care Blanca Walsh [id number] [place] [id number] [facility] 403 Branch 2021-01-14 2021-01-18 Hospital Pop Mattson [facility] 1.2.840. [id number] Univers 14:27:00 16:02:00 Encounter Fredy Austin [id number] [place] [id number] [facility] 080 Branch 2021-01-14 2021-01-14 Emergency X PADMA [facility] ERT [id number] Univers 14:27:00 14:27:00 POP [facility] 2020-09-21 2020-09-25 Hospital Ken Diaz [facility] [id number] Univers 09:12:00 11:40:00 Encounter Dipak Levin [id number] ity of [place] 4.2.7.2.686 [facility] [id number] [place] [id number] Branch 2020-09-21 2020-09-21 [facility] [id number] Univers 09:12:00 09:12:00 KEN [facility] 2020-07-10 2020-07-10 Emergency Anaya Garcia [facility] [id number] Univers 16:51:00 18:42:00 Nayeli Colmenares [id number] i ty of [place] 4.2.7.2.686 [facility] [id number] [place] [address] Branch 2020-07-10 2020-07-10 Emergency X [facility] ERT [id number] Univers 16:22:00 16:22:00 ity [facility] 2020-07-10 2020-07-10 Orders Doctor FABIOLA [id number] Univers 00:00:00 00:00:00 Only Unassigned, BERNADINE 350.1.13.10 ity of [place] [facility] 4.2.7.2.686 D[place] [id number] [facility] 009 Branch 2020-06-27 2020-06-27 Emergency [facility] [id number] Univers 22:01:00 23:13:00 Hardik Colmenares [id number] ity of [place] 4.2.7.2.686 [facility] [id number] [place] 020034 [place] 2020-06-27 2020-06-27 Emergency X [facility] ERT [id number] Univers 22:01:00 22:01:00 HARDIK [facility] Results Test Description Test Time Test Comments Results Result Comments Source BASIC METABOLIC PANEL (NA, K, CL, CO2, GLUCOSE, BUN, 2021-01 12:05:46 CREATININE, CA) Test Item Value Reference Range Interpretation Comme nts NA (test code = 8336896570) 135 mmol/L 135-145 K (test code = 1444374053) 4.3 mmol/L 3.5-5.0 CL (test code = 1590068830) 100 mmol/L 98-108 CO2 TOTAL (test code = 0817505989) 32 mmol/L 23-31 H AGAP (test code = 3435693348) 2-16 BUN (test code = 4589369421) 11 mg/dL 7-23 GLUCOSE (test code = 1087686072) 101 mg/dL 70-110 CREATININE (test code = 0.79 mg/dL 0.60-1.25 8478906051) CALCIUM (test code = 1120032044) 9.6 mg/dL 8.6-10.6 eGFR (test code = 2529596485) mL/min/1.73m2 CHUY (test code = CHUY) Association of Glomerular Filtration Rate (GFR) and Staging of Kidney Disease* + +-------- + ------+| GFR (mL/min/1.73 m2) ?| With Kidney Damage ?| ?Without Kidney Damage+ +-- + +| ?>90 ?| ?Stage one ?| ? Normal ?+ +------- + -------+| ?60-89 ?| ?Stage two ?| ? Decreased GFR ? + +-------- + ------+| ?30-59 ?| ?Stage three ?| ? Stage three ? + +-------- + ------+| ?15-29 ?| ?Stage four ? | ? Stage four ?+ +------- + -------+| ?<15 (or dialysis) ? ?| ?Stage five ? | ? Stage five ?+ +------- + -------+ *Each stage assumes the associated GFR level has been in effect for at least three months. ?Stages 1 to 5, with or without kidney disease, indicate chronic kidney disease. Notes: Determination of stages one and two (with eGFR >59mL/min/1.73 m2) requires estimation of kidney damage for at least three months as defined by structural or functional abnormalities of the kidney, manifested by either:Pathological abnormalities or Markers of kidney damage (including abnormalities in the composition of the blood or urine or abnormalities in imaging tests). Lab Interpretation (test code = Abnormal 50299-5) [facility] WITH [id number] 11:16:46 Test Item Value Reference Range Interpretation Comments WBC (test code = See_Comment [Automated 6690-2) message] The sy stem which generated this result transmitted reference range : 4.20 - 10.70 10*3/?L. The reference range was not used to interpret this result as normal/abnormal . RBC (test code = See_Comment [Automated 789-8) message] The sy stem which generated this result transmitted reference range : 4.26 - 5.52 10*6/?L. The reference range was not used to interpret this result as normal/abnormal . HGB (test code = 16.2 g/dL 12.2-16.4 718-7) HCT (test code = 45.7 % 38.4-49.3 4544-3) MCV (test code = 95.6 fL 81.7-95.6 787-2) MCH (test code = 33.9 pg 26.1-32.7 H 785-6) MCHC (test code = 35.4 g/dL 31.2-35.0 H 786-4) RDW-SD (test code = 54.7 fL 38.5-51.6 H 55345-3) RDW-CV (test code = 15.3 % 12.1-15.4 788-0) PLT (test code = See_Comment [Automated 777-3) message] The sy stem which generated this result transmitted reference range : 150 - 328 10*3/ ?L. The reference r sonam was not used to interpret this result as normal/abnormal . MPV (test code = 10.6 fL 9.8-13.0 10344-7) NRBC/100 WBC (test See_Comment [Automat ed code = 0586084907) message] The system which generated this result transmitted reference range : 0.0 - 10.0 /100 WBCs. The refer ence range was not u sed to interpret th is result as normal/abnormal . NRBC x10^3 (test code <0.01 See_Comment [Auto mated = 4909001972) message] The s ystem which generated this result transmitted reference range : 10*3/?L. The reference range was not used to interpret this result as normal/abnormal . GRAN MAT (NEUT) % 46.1 % (test code = 770-8) IMM GRAN % (test code 0.20 % = 6177103740) LYMPH % (test code = 36.2 % 736-9) MONO % (test code = 9.0 % 5905-5) EOS % (test code = 7.8 % 713-8) BASO % (test code = 0.7 % 706-2) GRAN MAT x10^3(ANC) 2.68 10*3/uL 1.99-6.95 (test code = 9599139291) IMM GRAN x10^3 (test <0.03 0.00-0.06 code = 3281372997) LYMPH x10^3 (test code 2.10 10*3/uL 1.09-3.23 = 731-0) MONO x10^3 (test code 0.52 10*3/uL 0.36-1.02 = 742-7) EOS x10^3 (test code = 0.45 10*3/uL 0.06-0.53 711-2) BASO x10^3 (test code 0.04 10*3/uL 0.01-0.09 = 704-7) Lab Interpretation Abnormal (test code = 34218-9) [facility] WITH [id number] 12:13:54 Test Item Value Reference Range Interpretation Comments WBC (test code = See_Comment [Automated 4490-2) message] The sy stem which generated this result transmitted reference range : 4.20 - 10.70 10*3/?L. The reference range was not used to interpret this result as normal/abnormal . RBC (test code = See_Comment [Automated 858-8) message] The sy stem which generated this result transmitted reference range : 4.26 - 5.52 10*6/?L. The reference range was not used to interpret this result as normal/abnormal . HGB (test code = 15.2 g/dL 12.2-16.4 718-7) HCT (test code = 42.3 % 38.4-49.3 4544-3) MCV (test code = 95.7 fL 81.7-95.6 H 787-2) MCH (test code = 34.4 pg 26.1-32.7 H 785-6) MCHC (test code = 35.9 g/dL 31.2-35.0 H 786-4) RDW-SD (test code = 55.8 fL 38.5-51.6 H 07367-0) RDW-CV (test code = 15.7 % 12.1-15.4 H 788-0) PLT (test code = See_Comment [Automated 777-3) message] The sy stem which generated this result transmitted reference range : 150 - 328 10*3/ ?L. The reference r sonam was not used to interpret this result as normal/abnormal . MPV (test code = 10.3 fL 9.8-13.0 71617-2) NRBC/100 WBC (test See_Comment [Automat ed code = 9679170898) message] The system which generated this result transmitted reference range : 0.0 - 10.0 /100 WBCs. The refer ence range was not u sed to interpret th is result as normal/abnormal . NRBC x10^3 (test code <0.01 See_Comment [Auto mated = 0063328544) message] The s ystem which generated this result transmitted reference range : 10*3/?L. The reference range was not used to interpret this result as normal/abnormal . GRAN MAT (NEUT) % 54.0 % (test code = 770-8) IMM GRAN % (test code 0.20 % = 1607423558) LYMPH % (test code = 31.0 % 736-9) MONO % (test code = 8.6 % 5905-5) EOS % (test code = 5.6 % 713-8) BASO % (test code = 0.6 % 706-2) GRAN MAT x10^3(ANC) 3.60 10*3/uL 1.99-6.95 (test code = 0944689464) IMM GRAN x10^3 (test <0.03 0.00-0.06 code = 8730700689) LYMPH x10^3 (test code 2.06 10*3/uL 1.09-3.23 = 731-0) MONO x10^3 (test code 0.57 10*3/uL 0.36-1.02 = 742-7) EOS x10^3 (test code = 0.37 10*3/uL 0.06-0.53 711-2) BASO x10^3 (test code 0.04 10*3/uL 0.01-0.09 = 704-7) Lab Interpretation Abnormal (test code = 48456-5) [facility] WITH [id number] 10:56:14 Test Item Value Reference Range Interpretation Comments WBC (test code = See_Comment [Automated 6490-2) message] The sy stem which generated this result transmitted reference range : 4.20 - 10.70 10*3/?L. The reference range was not used to interpret this result as normal/abnormal . RBC (test code = See_Comment [Automated 009-8) message] The sy stem which generated this result transmitted reference range : 4.26 - 5.52 10*6/?L. The reference range was not used to interpret this result as normal/abnormal . HGB (test code = 14.7 g/dL 12.2-16.4 718-7) HCT (test code = 40.4 % 38.4-49.3 4544-3) MCV (test code = 94.8 fL 81.7-95.6 787-2) MCH (test code = 34.5 pg 26.1-32.7 H 785-6) MCHC (test code = 36.4 g/dL 31.2-35.0 H 786-4) RDW-SD (test code = 53.9 fL 38.5-51.6 H 20888-4) RDW-CV (test code = 15.5 % 12.1-15.4 H 788-0) PLT (test code = See_Comment [Automated 777-3) message] The sy stem which generated this result transmitted reference range : 150 - 328 10*3/ ?L. The reference r sonam was not used to interpret this result as normal/abnormal . MPV (test code = 10.5 fL 9.8-13.0 23953-4) NRBC/100 WBC (test See_Comment [Automat ed code = 2694278324) message] The system which generated this result transmitted reference range : 0.0 - 10.0 /100 WBCs. The refer ence range was not u sed to interpret th is result as normal/abnormal . NRBC x10^3 (test code <0.01 See_Comment [Auto mated = 3604844327) message] The s ystem which generated this result transmitted reference range : 10*3/?L. The reference range was not used to interpret this result as normal/abnormal . GRAN MAT (NEUT) % 62.7 % (test code = 770-8) IMM GRAN % (test code 0.30 % = 4923233070) LYMPH % (test code = 23.3 % 736-9) MONO % (test code = 7.9 % 5905-5) EOS % (test code = 5.5 % 713-8) BASO % (test code = 0.3 % 706-2) GRAN MAT x10^3(ANC) 3.86 10*3/uL 1.99-6.95 (test code = 3196082893) IMM GRAN x10^3 (test <0.03 0.00-0.06 code = 8276562603) LYMPH x10^3 (test code 1.44 10*3/uL 1.09-3.23 = 731-0) MONO x10^3 (test code 0.49 10*3/uL 0.36-1.02 = 742-7) EOS x10^3 (test code = 0.34 10*3/uL 0.06-0.53 711-2) BASO x10^3 (test code <0.03 0.01-0.09 = 704-7) Lab Interpretation Abnormal (test code = 93651-8) [facility] [id number] 10:54:53 Test Item Value Reference Range Interpretation Comments NT-proBNP (test code 53 pg/mL See_Comment [Autom ated = 7103475063) message] The system which generated this result transmitted reference range : <=125. The reference range was not used to interpret this result as normal/abnormal . CHUY (test code = CHUY) Biotin has been reported to cause a negative bias, interpret results relative to patient's use of biotin. Lab Interpretation Normal (test code = 25131-1) [facility]. METABOLIC PANEL (55313)2021-01-16 10:48:12 Test Item Value Reference Range Interpretation Comments NA (test code = 134 mmol/L 135-145 L 6705197916) K (test code = 3.7 mmol/L 3.5-5.0 7583122636) CL (test code = 104 mmol/L 98-108 3453513823) CO2 TOTAL (test code = 26 mmol/L 23-31 3375887845) AGAP (test code = 2-16 7775444912) BUN (test code = 7 mg/dL 7-23 1717605819) GLUCOSE (test code = 102 mg/dL 70-110 2882061843) CREATININE (test code = 0.81 mg/dL 0.60-1.25 7164128327) TOTAL BILI (test code = 0.6 mg/dL 0.1-1.2 9998123804) CALCIUM (test code = 9.2 mg/dL 8.6-10.6 9507476643) T PROTEIN (test code = 6.3 g/dL 6.3-8.2 1260874762) ALBUMIN (test code = 3.3 g/dL 3.5-5.0 L 3391421347) ALK PHOS (test code = 67 U/L 34-122 7842130650) ALTv (test code = 11 U/L 5-50 1742-6) AST(SGOT) (test code = 20 U/L 13-40 8519956005) eGFR (test code = mL/min/1.73m2 7457506178) CHUY (test code = CHUY) Association of Glomerular Filtration Rate (GFR) and Staging of Kidney Disease* + --+ --+ ------+| GFR (mL/min/1.73 m2) ?| With Kidney Damage ?| ?Without Kidney Damage+ --------+ --------+ +| ?>90 ?| ?Stage one ?| ? Normal ?+ ---+ ---+ -------+| ?60-89 ?| ?Stage two ?| ? Decreased GFR ? + --+ --+ ------+| ?30-59 ?| ?Stage three ?| ? Stage three ? + --+ --+ ------+| ?15-29 ?| ?Stage four ? | ? Stage four ?+ ---+ ---+ -------+| ?<15 (or dialysis) ? ?| ?Stage five ? | ? Stage five ?+ ---+ ---+ -------+ *Each stage assumes the associated GFR level has been in effect for at least three months. ?Stages 1 to 5, with or without kidney disease, indicate chronic kidney disease. Notes: Determination of stages one and two (with eGFR >59mL/min/1.73 m2) requires estimation of kidney damage for at least three months as defined by structural or functional abnormalities of the kidney, manifested by either:Pathological abnormalities or Markers of kidney damage (including abnormalities in the composition of the blood or urine or abnormalities in imaging tests). Lab Interpretation Abnormal (test code = 94994-0) [facility] 10:48:12 Test Item Value Reference Range Interpretation Comments MAGNESIUM (test code = 0573129112) 1.8 mg/dL 1.7-2.4 Lab Interpretation (test code = Normal 58510-0) [facility] [id number] 19:25:04 Test Item Value Reference Range Interpretation Comments CRP (test code = 4235748934) 0.4 mg/dL <0.8 Lab Interpretation (test code = Normal 92552-9) [facility] B12, [id number] 19:16:48 Test Item Value Reference Range Interpretation Comments VIT B12 (test code = >1000 240-930 H 4152743626) CHUY (test code = CHUY) Biotin has been reported to cause a positive bias, interpret results relative to patient's use of biotin. Lab Interpretation (test Abnormal code = 69036-3) [facility] D, [id number] 16:59:32 Test Item Value Reference Range Interpretation Comments VIT D 25OH (test code = <13 25-80 L 96323-9) CHUY (test code = CHUY) Deficiency: <20 ng/mLInsufficiency: 20-24 ng/mLOptimal: 25-80 ng/mL Lab Interpretation (test Abnormal code = 98388-6) [facility]21-[facility] 16:38:07 Test Item Value Reference Range Interpretation Comments FOLATE SER (test code = 2.2 ng/mL 3.0-20.0 L Biot in has been 4525653279) reported to cau se a positive bias, interpret resul ts relative to patient's use o f biotin. Lab Interpretation (test Abnormal code = 86182-2) [facility]2021-[facility]-15 15:53:10 Test Item Value Reference Range Interpretation Comments Procalcitonin (test 0.02 ng/mL <0.07 code = 3357482674) CHUY (test code = CHUY) INTERPRETATION OF PROCALCITONIN RESULTS IN ADULTS >= 18 YEARS OF AGE Initiation and discontinuation of antibiotics on patients with suspected or confirmed Lower Respiratory Tract Infection in Adults >= 18 years of age. + +-------- --------+ + -----+|Procalcitonin |Interpretation ?|Antibiotic ? ? |Considerations ? |ng/mL ? | ?|recommendation | ? + +-------- --------+ + -----+| <0.1 ? | Bacterial ? ? ?| Strongly ? ? ?| ? | ?| infection very | discouraged ? | Overruling: ? | ?| unlikely ? ? ? | ? | ? Clinically unstable ? ? ? + +-------- --------+ + ? High risk for adverse ? ? | <0.25 ?| Bacterial ? ? ?| Discouraged ? | ? outcome ? | ?| infection ? ? ?| ? | ? SEE IMPORTANT NOTE ?| ?| unlikely ? ? ? | ? | ? + +-------- --------+ + -----+| >=0.25 ? ? ? | Bacterial ? ? ?| Encouraged ? ?| ? | ?| infection ? ? ?| ? | ? | ?| likely ? | ? | Consider treatment failure ?+ +------- ---------+ -+ if levels does not decrease | >0.5 ? | Bacterial ? ? ?| Strongly ? ? ?| appropriately ? | ?| infection very | encouraged ? ?| ? | ?| likely ? | ? | ? + +-------- --------+ + -----+ Discontinuation of antibiotics in high-acuity patients with suspected or confirmed sepsis in Adults >= 18 years of age. + +-------- --------+ + -----+|Procalcitonin |Interpretation ?|Antibiotic ? ? |Considerations ? |ng/mL ? | ?|recommendation | ? + +-------- --------+ + -----+| <0.25 ?| Bacterial ? ? ?| Strongly ? ? ?| ? | ?| infection very | discouraged ? | Overruling: ? | ?| unlikely ? ? ? | ? | ? Clinically unstable ? ? ? + +-------- --------+ + ? High risk for adverse ? ? | <0.5 or drop | Bacterial ? ? ?| Discouraged ? | ? outcome ? | >80% from ? ?| infection ? ? ?| ? | ? SEE IMPORTANT NOTE ?| highest PCT ?| unlikely ? ? ? | ? | ? | level ?| ?| ? | ? + +-------- --------+ + -----+| >=0.5 ?| Bacterial ? ? ?| Encouraged ? ?| ? | ?| infection ? ? ?| ? | ? | ?| likely ? | ? | Consider treatment failure ?+ +------- ---------+ -+ if levels does not decrease | >1.0 ? | Bacterial ? ? ?| Strongly ? ? ?| appropriately ? | ?| infection very | encouraged ? ?| ? | ?| likely ? | ? | ? + +-------- --------+ + -----+ Percentage of drop of Procalcitonin calculation for Discontinuation of antibiotics in high-acuity patients with suspected or confirmed sepsis in Adults >= 18 years of age. ? Procalcitonin highest{}-Procalcitonin current{}Delta Procalcitonin = x100% ? Procalcitonin current {} IMPORTANT NOTE: Procalcitonin may be elevated without bacterial infection by physiologic stress related to trauma, mills, chronic dialysis, metastatic cancer, surgery in the past seven days, malaria, some fungal infections, and some forms of vasculitis. The interpretation algorithm may not apply to patients with immunosuppression (equivalent of >10 mg of prednisone daily), HIV with CD4 cell count < 350 cells/mm3, active malignancy on systemic chemotherapy, solid organ transplant or hematopoietic stem cell transplantation, or hospital acquired pneumonia. Additionally, some clinical trials of procalcitonin have excluded patients with shock requiring vasopressor use, acute respiratory failure requiring mechanical ventilation, or those with known lung abscess/empyema. For further information please refer to:[email or web address] Lab Interpretation Normal (test code = 60464-4) [facility] [id number] 12:57:06 Test Item Value Reference Range Interpretation Comments FERRITIN (test code = 81.5 ng/mL 18.0-464.0 2426349655) CHUY (test code = CHUY) Biotin has been reported to cause a negative bias, interpret results relative to patient's use of biotin. Lab Interpretation (test Normal code = 48639-4) [facility] HospitalTHYROID STIMULATING [id number] 12:52:21 Test Item Value Reference Range Interpretation Comments TSH (test code = See_Comment Biotin has been [id number]) reported to cau se a negative bias, interpret resul ts relative to pat ient's use of biotin. [Automated mess age] The system [employer] generated this result transmitted ref erence range: 0.45 - 4 .70 mIU/L. The refe rence range was not u sed to interpret this result as normal/abnor mal. Lab Interpretation (test Normal code = 30395-3) [facility]AL [id number] 12:31:43 Test Item Value Reference Range Interpretation Comments NT-proBNP (test code 132 pg/mL See_Comment H [Autom ated = 4348515177) message] The system which generated this result transmitted reference range : <=125. The reference range was not used to interpret this result as normal/abnormal . CHUY (test code = CHUY) Biotin has been reported to cause a negative bias, interpret results relative to patient's use of biotin. Lab Interpretation Abnormal (test code = 03051-9) [facility] HospitalSEDIMENTATION [id number] 12:30:27 Test Item Value Reference Range Interpretation Comments ESR (test code = See_Comment [Automated message] [id number]) The system [employer] generated this result transmitted ref erence range: 0 - 10 m m/HR. The reference r sonam was not used to interpret this result as normal/abnor mal. Lab Interpretation (test Normal code = 14148-2) [facility]. METABOLIC PANEL ([id number])2021-01-15 12:28:20 Test Item Value Reference Range Interpretation Comments NA (test code = 133 mmol/L 135-145 L 3545053039) K (test code = 3.8 mmol/L 3.5-5.0 0703826132) CL (test code = 107 mmol/L 98-108 1362986757) CO2 TOTAL (test code = 21 mmol/L 23-31 L 9078183469) AGAP (test code = 2-16 3741125455) BUN (test code = 8 mg/dL 7-23 2103269337) GLUCOSE (test code = 82 mg/dL 70-110 5526343834) CREATININE (test code = 0.84 mg/dL 0.60-1.25 3978361587) TOTAL BILI (test code = 1.5 mg/dL 0.1-1.1 H 4611846095) CALCIUM (test code = 8.9 mg/dL 8.6-10.6 2360739520) T PROTEIN (test code = 6.1 g/dL 6.3-8.2 L 9970440488) ALBUMIN (test code = 3.2 g/dL 3.5-5.0 L 8877001005) ALK PHOS (test code = 61 U/L 34-122 3241352796) ALTv (test code = 10 U/L 50 1742-6) AST(SGOT) (test code = 19 U/L 13-40 2718736987) eGFR (test code = mL/min/1.73m2 7291614709) CHUY (test code = CHUY) Association of Glomerular Filtration Rate (GFR) and Staging of Kidney Disease* + --+ --+ ------+| GFR (mL/min/1.73 m2) ?| With Kidney Damage ?| ?Without Kidney Damage+ --------+ --------+ +| ?>90 ?| ?Stage one ?| ? Normal ?+ ---+ ---+ -------+| ?60-89 ?| ?Stage two ?| ? Decreased GFR ? + --+ --+ ------+| ?30-59 ?| ?Stage three ?| ? Stage three ? + --+ --+ ------+| ?15-29 ?| ?Stage four ? | ? Stage four ?+ ---+ ---+ -------+| ?<15 (or dialysis) ? ?| ?Stage five ? | ? Stage five ?+ ---+ ---+ -------+ *Each stage assumes the associated GFR level has been in effect for at least three months. ?Stages 1 to 5, with or without kidney disease, indicate chronic kidney disease. Notes: Determination of stages one and two (with eGFR >59mL/min/1.73 m2) requires estimation of kidney damage for at least three months as defined by structural or functional abnormalities of the kidney, manifested by either:Pathological abnormalities or Markers of kidney damage (including abnormalities in the composition of the blood or urine or abnormalities in imaging tests). Lab Interpretation Abnormal (test code = 10000-1) [facility]MAG[facility]IUM2021-10-15 12:28:20 Test Item Value Reference Range Interpretation Comments MAGNESIUM (test code = 4681016189) 1.6 mg/dL 1.7-2.4 L Lab Interpretation (test code = Abnormal 58664-7) [facility] HospitalLIPID PANEL ([id number])(TOTAL CHOLESTEROL, TRIGLYCERIDES, HDL)2021-01-15 12:20:22 Test Item Value Reference Range Interpretation Comments CHOL (test code = 124 mg/dL 120-200 5765255765) HDL (test code = 55 mg/dL >40 5011996385) HDLC RATIO (test code = See_Comment [Au tomated message] 8447954376) The system [employer] generated this result transmit evelia reference range : <=5.0. The refe rence range was not u sed to interpret th is result as normal/abnormal . TRIG (test code = 79 mg/dL 30-170 8003954957) LDL CHOL (test code = 53 mg/dL See_Comment [Auto mated message] 60718-4) The system [employer] generated this result transmit evelia reference range : <=160. The refe rence range was not u sed to interpret th is result as normal/abnormal . VLDL (test code = 16 mg/dL 5-60 6771439711) Lab Interpretation (test Normal code = 85344-2) [facility] WITH [id number] 11:55:39 Test Item Value Reference Range Interpretation Comments WBC (test code = See_Comment [Automated 6690-2) message] The sy stem which generated this result transmitted reference range : 4.20 - 10.70 10*3/?L. The reference range was not used to interpret this result as normal/abnormal . RBC (test code = See_Comment L [Automated 789-8) message] The sy stem which generated this result transmitted reference range : 4.26 - 5.52 10*6/?L. The reference range was not used to interpret this result as normal/abnormal . HGB (test code = 14.0 g/dL 12.2-16.4 718-7) HCT (test code = 39.5 % 38.4-49.3 4544-3) MCV (test code = 95.9 fL 81.7-95.6 H 787-2) MCH (test code = 34.0 pg 26.1-32.7 H 785-6) MCHC (test code = 35.4 g/dL 31.2-35.0 H 786-4) RDW-SD (test code = 56.2 fL 38.5-51.6 H 56365-2) RDW-CV (test code = 15.8 % 12.1-15.4 H 788-0) PLT (test code = See_Comment [Automated 777-3) message] The sy stem which generated this result transmitted reference range : 150 - 328 10*3/ ?L. The reference r sonam was not used to interpret this result as normal/abnormal . MPV (test code = 10.4 fL 9.8-13.0 86729-0) NRBC/100 WBC (test See_Comment [Automat ed code = 4601325606) message] The system which generated this result transmitted reference range : 0.0 - 10.0 /100 WBCs. The refer ence range was not u sed to interpret th is result as normal/abnormal . NRBC x10^3 (test code <0.01 See_Comment [Auto mated = 5827282002) message] The s ystem which generated this result transmitted reference range : 10*3/?L. The reference range was not used to interpret this result as normal/abnormal . GRAN MAT (NEUT) % 61.0 % (test code = 770-8) IMM GRAN % (test code 0.30 % = 0928319487) LYMPH % (test code = 24.7 % 736-9) MONO % (test code = 8.4 % 5905-5) EOS % (test code = 5.1 % 713-8) BASO % (test code = 0.5 % 706-2) GRAN MAT x10^3(ANC) 4.45 10*3/uL 1.99-6.95 (test code = 4835737137) IMM GRAN x10^3 (test <0.03 0.00-0.06 code = 5816891180) LYMPH x10^3 (test code 1.80 10*3/uL 1.09-3.23 = 731-0) MONO x10^3 (test code 0.61 10*3/uL 0.36-1.02 = 742-7) EOS x10^3 (test code = 0.37 10*3/uL 0.06-0.53 711-2) BASO x10^3 (test code 0.04 10*3/uL 0.01-0.09 = 704-7) Lab Interpretation Abnormal (test code = 28590-6) [facility] HospitalN-TERMINAL [id number] 06:47:06 Test Item Value Reference Range Interpretation Comments NT-proBNP (test code 101 pg/mL See_Comment [Autom ated = 8422277223) message] The system which generated this result transmitted reference range : <=125. The reference range was not used to interpret this result as normal/abnormal . CHUY (test code = CHUY) Biotin has been reported to cause a negative bias, interpret results relative to patient's use of biotin. Lab Interpretation Normal (test code = 94951-7) [facility]MAG[facility]2021-10-15 06:40:29 Test Item Value Reference Range Interpretation Comments MAGNESIUM (test code = 0023901960) 1.6 mg/dL 1.7-2.4 L Lab Interpretation (test code = Abnormal 23302-2) [facility] HospitalPHOSPHORUS2021-10-15 06:40:29 Test Item Value Reference Range Interpretation Comments PHOSPHORUS (test code = 2605003128) 4.6 mg/dL 2.5-5.0 Lab Interpretation (test code = Normal 58045-0) [facility] HospitalURIC [id number] 06:40:09 Test Item Value Reference Range Interpretation Comments URIC ACID (test code = 8451952832) 6.4 mg/dL 3.6-8.0 Lab Interpretation (test code = Normal 89047-2) [facility] HospitalGLYCOSYLATED HEMOGLOBIN (A1C)2021-01-15 04:47:57 Test Item Value Reference Range Interpretation Comments HGB A1C (test code = 5.0 % 4.0-5.7 4548-4) CHUY (test code = CHUY) Reference RangesNormal: <5.7%Prediabetes: 5.7 - 6.4%Diabetes: > 6.5% Lab Interpretation (test Normal code = 26179-2) [facility] HospitalBASIC METABOLIC PANEL (NA, K, CL, CO2, GLUCOSE, BUN, CREATININE, CA)2021-01-14 20:41:20 Test Item Value Reference Range Interpretation Comments NA (test code = 137 mmol/L 135-145 4383056355) K (test code = 4.3 mmol/L 3.5-5.0 1894994913) CL (test code = 106 mmol/L 98-108 2501530680) CO2 TOTAL (test code 26 mmol/L 23-31 = 9855593546) AGAP (test code = 2-16 0819462621) BUN (test code = 8 mg/dL 7-23 7680925849) GLUCOSE (test code = 99 mg/dL 70-110 4961591473) CREATININE (test code 0.85 mg/dL 0.60-1.25 = 1460613040) CALCIUM (test code = 9.3 mg/dL 8.6-10.6 0273449648) eGFR (test code = mL/min/1.73m2 7995485914) CHUY (test code = CHUY) Association of Glomerular Filtration Rate (GFR) and Staging of Kidney Disease* + + +- +| GFR (mL/min/1.73 m2) ?| With Kidney Damage ?| ?Without Kidney Damage+ ------+ ----+ ------+| ?>90 ?| ?Stage one ?| ? Normal ?+ -+ + -+| ?60-89 ?| ?Stage two ?| ? Decreased GFR ? + + +- +| ?30-59 ?| ?Stage three ?| ? Stage three ? + + +- +| ?15-29 ?| ?Stage four ? | ? Stage four ?+ -+ + -+| ?<15 (or dialysis) ? ?| ?Stage five ? | ? Stage five ?+ -+ + -+ *Each stage assumes the associated GFR level has been in effect for at least three months. ?Stages 1 to 5, with or without kidney disease, indicate chronic kidney disease. Notes: Determination of stages one and two (with eGFR >59mL/min/1.73 m2) requires estimation of kidney damage for at least three months as defined by structural or functional abnormalities of the kidney, manifested by either:Pathological abnormalities or Markers of kidney damage (including abnormalities in the composition of the blood or urine or abnormalities in imaging tests). [facility] HospitalHEPATIC FUNCTION PANEL ([id number]) (ALB,T.PRO,BILI T,BU/BC,ALT,AST,ALK PHOS)2021-01-14 20:41:20 Test Item Value Reference Range Interpretation Comments TOTAL BILI (test code = 5694094088) 1.4 mg/dL 0.1-1.1 H BILI UNCON (test code = 1516685392) 1.3 mg/dL 0.1-1.1 H BILI CONJ (test code = 1372980065) 0.0 mg/dL 0.0-0.3 T PROTEIN (test code = 7820391894) 6.9 g/dL 6.3-8.2 ALBUMIN (test code = 2623382478) 3.8 g/dL 3.5-5.0 ALK PHOS (test code = 1597378359) 61 U/L 34-122 ALTv (test code = 1742-6) 13 U/L 5-50 AST(SGOT) (test code = 8976422892) 25 U/L 13-40 Lab Interpretation (test code = Abnormal 34354-7) [facility] WITH [id number] 20:30:15 Test Item Value Reference Range Interpretation Comments WBC (test code = See_Comment [Automated 6690-2) message] The sy stem which generated this result transmitted reference range : 4.20 - 10.70 10*3/?L. The reference range was not used to interpret this result as normal/abnormal . RBC (test code = See_Comment L [Automated 789-8) message] The sy stem which generated this result transmitted reference range : 4.26 - 5.52 10*6/?L. The reference range was not used to interpret this result as normal/abnormal . HGB (test code = 14.1 g/dL 12.2-16.4 718-7) HCT (test code = 39.4 % 38.4-49.3 4544-3) MCV (test code = 95.6 fL 81.7-95.6 787-2) MCH (test code = 34.2 pg 26.1-32.7 H 785-6) MCHC (test code = 35.8 g/dL 31.2-35.0 H 786-4) RDW-SD (test code = 57.1 fL 38.5-51.6 H 67172-4) RDW-CV (test code = 16.1 % 12.1-15.4 H 788-0) PLT (test code = See_Comment [Automated 777-3) message] The sy stem which generated this result transmitted reference range : 150 - 328 10*3/ ?L. The reference r sonam was not used to interpret this result as normal/abnormal . MPV (test code = 10.8 fL 9.8-13.0 82396-0) NRBC/100 WBC (test See_Comment [Automat ed code = 0219172483) message] The system which generated this result transmitted reference range : 0.0 - 10.0 /100 WBCs. The refer ence range was not u sed to interpret th is result as normal/abnormal . NRBC x10^3 (test code <0.01 See_Comment [Auto mated = 0147875477) message] The s ystem which generated this result transmitted reference range : 10*3/?L. The reference range was not used to interpret this result as normal/abnormal . GRAN MAT (NEUT) % 55.2 % (test code = 770-8) IMM GRAN % (test code 0.10 % = 0016109937) LYMPH % (test code = 32.3 % 736-9) MONO % (test code = 7.4 % 5905-5) EOS % (test code = 4.6 % 713-8) BASO % (test code = 0.4 % 706-2) GRAN MAT x10^3(ANC) 4.04 10*3/uL 1.99-6.95 (test code = 3161361397) IMM GRAN x10^3 (test <0.03 0.00-0.06 code = 1799757964) LYMPH x10^3 (test code 2.37 10*3/uL 1.09-3.23 = 731-0) MONO x10^3 (test code 0.54 10*3/uL 0.36-1.02 = 742-7) EOS x10^3 (test code = 0.34 10*3/uL 0.06-0.53 711-2) BASO x10^3 (test code 0.03 10*3/uL 0.01-0.09 = 704-7) Lab Interpretation Abnormal (test code = 73494-7) [facility] HospitalVan[facility] Trough Level - Draw immediately prior to the next [id number] 05:18:17 Test Item Value Reference Range Interpretation Comments VANCO TROUGH (test code 14.1 ug/mL 10.0-20.0 = 1137151515) CHUY (test code = CHUY) Toxic Range: ?>20 ug/mL 15-20 ug/mL is recommended for severe infection or when Vancomycin RUBI is greater than or equal to 2. Lab Interpretation (test Normal code = 49364-9) [facility] HospitalXR CHEST 1 [id number] 16:25:52HISTORY: PICC line placement. TECHNIQUE: Portable AP view of the chest is obtained. FINDINGS: No acute pneumonia. No pneumothorax or pleural effusion orpulmonary congestion detected. Cardiac size is within normal limits.Right-sided PICC line appears to be in good position with its tip at midSVC level.CONCLUSIONS: No signs of acute cardiopulmonary disease.[facility], Radiant Results Inft User - 09/24/2020 11:27 AM CDT HISTORY: PICC line placement.TECHNIQUE: Portable AP view of the chest is obtained.FINDINGS: No acute pneumonia. No pneumothorax or pleural effusion orpulmonary congestion detected. Cardiac size is within normal limits.Right-sided PICC line appears to be in good position with its tip at midSVC level.CONCLUSIONS: No signs of acute cardiopulmonary disease.[facility]. METABOLIC PANEL ([id number])2020-09-24 09:18:58 Test Item Value Reference Range Interpretation Comments NA (test code = 131 mmol/L 135-145 L 3578020159) K (test code = 4.1 mmol/L 3.5-5.0 1294899408) CL (test code = 103 mmol/L 98-108 5916441562) CO2 TOTAL (test code = 25 mmol/L 23-31 2612151074) AGAP (test code = 2-16 2268818864) BUN (test code = 8 mg/dL 7-23 9512251295) GLUCOSE (test code = 91 mg/dL 70-110 9644509323) CREATININE (test code = 0.71 mg/dL 0.60-1.25 3631680162) TOTAL BILI (test code = 0.7 mg/dL 0.1-1.6 3375953311) CALCIUM (test code = 9.1 mg/dL 8.6-10.6 6319041528) T PROTEIN (test code = 6.6 g/dL 6.3-8.2 8267336499) ALBUMIN (test code = 3.5 g/dL 3.5-5.0 6824664519) ALK PHOS (test code = 63 U/L 34-122 0042940860) ALTv (test code = 32 U/L 5-50 1742-6) AST(SGOT) (test code = 43 U/L 13-40 H 2273530718) eGFR (test code = mL/min/1.73m2 9802945896) CHUY (test code = CHUY) Association of Glomerular Filtration Rate (GFR) and Staging of Kidney Disease* + --+ --+ ------+| GFR (mL/min/1.73 m2) ?| With Kidney Damage ?| ?Without Kidney Damage+ --------+ --------+ +| ?>90 ?| ?Stage one ?| ? Normal ?+ ---+ ---+ -------+| ?60-89 ?| ?Stage two ?| ? Decreased GFR ? + --+ --+ ------+| ?30-59 ?| ?Stage three ?| ? Stage three ? + --+ --+ ------+| ?15-29 ?| ?Stage four ? | ? Stage four ?+ ---+ ---+ -------+| ?<15 (or dialysis) ? ?| ?Stage five ? | ? Stage five ?+ ---+ ---+ -------+ *Each stage assumes the associated GFR level has been in effect for at least three months. ?Stages 1 to 5, with or without kidney disease, indicate chronic kidney disease. Notes: Determination of stages one and two (with eGFR >59mL/min/1.73 m2) requires estimation of kidney damage for at least three months as defined by structural or functional abnormalities of the kidney, manifested by either:Pathological abnormalities or Markers of kidney damage (including abnormalities in the composition of the blood or urine or abnormalities in imaging tests). Lab Interpretation Abnormal (test code = 87257-1) [facility] WITH [id number] 08:38:18 Test Item Value Reference Range Interpretation Comments WBC (test code = See_Comment [Automated 7890-2) message] The sy stem which generated this result transmitted reference range : 4.20 - 10.70 10*3/?L. The reference range was not used to interpret this result as normal/abnormal . RBC (test code = See_Comment L [Automated 789-8) message] The sy stem which generated this result transmitted reference range : 4.26 - 5.52 10*6/?L. The reference range was not used to interpret this result as normal/abnormal . HGB (test code = 13.8 g/dL 12.2-16.4 718-7) HCT (test code = 38.0 % 38.4-49.3 L 4544-3) MCV (test code = 96.7 fL 81.7-95.6 H 787-2) MCH (test code = 35.1 pg 26.1-32.7 H 785-6) MCHC (test code = 36.3 g/dL 31.2-35.0 H 786-4) RDW-SD (test code = 50.3 fL 38.5-51.6 38570-2) RDW-CV (test code = 14.1 % 12.1-15.4 788-0) PLT (test code = See_Comment [Automated 777-3) message] The sy stem which generated this result transmitted reference range : 150 - 328 10*3/ ?L. The reference r sonam was not used to interpret this result as normal/abnormal . MPV (test code = 10.5 fL 9.8-13.0 75396-2) NRBC/100 WBC (test See_Comment [Automat ed code = 8911616876) message] The system which generated this result transmitted reference range : 0.0 - 10.0 /100 WBCs. The refer ence range was not u sed to interpret th is result as normal/abnormal . NRBC x10^3 (test code <0.01 See_Comment [Auto mated = 0046358915) message] The s ystem which generated this result transmitted reference range : 10*3/?L. The reference range was not used to interpret this result as normal/abnormal . GRAN MAT (NEUT) % 55.5 % (test code = 770-8) IMM GRAN % (test code 0.20 % = 2793769828) LYMPH % (test code = 31.4 % 736-9) MONO % (test code = 8.1 % 5905-5) EOS % (test code = 4.3 % 713-8) BASO % (test code = 0.5 % 706-2) GRAN MAT x10^3(ANC) 3.48 10*3/uL 1.99-6.95 (test code = 1625003491) IMM GRAN x10^3 (test <0.03 0.00-0.06 code = 9504404458) LYMPH x10^3 (test code 1.97 10*3/uL 1.09-3.23 = 731-0) MONO x10^3 (test code 0.51 10*3/uL 0.36-1.02 = 742-7) EOS x10^3 (test code = 0.27 10*3/uL 0.06-0.53 711-2) BASO x10^3 (test code 0.03 10*3/uL 0.01-0.09 = 704-7) Lab Interpretation Abnormal (test code = 52379-8) [facility]. METABOLIC PANEL ([id number])2020-09-23 09:33:25 Test Item Value Reference Range Interpretation Comments NA (test code = 132 mmol/L 135-145 L 8710103141) K (test code = 4.1 mmol/L 3.5-5.0 4206672567) CL (test code = 106 mmol/L 98-108 8540187593) CO2 TOTAL (test code = 21 mmol/L 23-31 L 3253287499) AGAP (test code = 2-16 5847115101) BUN (test code = 8 mg/dL 7-23 5973755441) GLUCOSE (test code = 88 mg/dL 70-110 2008175765) CREATININE (test code = 0.65 mg/dL 0.60-1.25 6198196033) TOTAL BILI (test code = 1.3 mg/dL 0.1-1.1 H 3364490400) CALCIUM (test code = 8.6 mg/dL 8.6-10.6 9493460021) T PROTEIN (test code = 6.5 g/dL 6.3-8.2 1487962064) ALBUMIN (test code = 3.1 g/dL 3.5-5.0 L 6373473459) ALK PHOS (test code = 50 U/L 34-122 3850675896) ALTv (test code = 27 U/L 5-50 1742-6) AST(SGOT) (test code = 48 U/L 13-40 H 1732668478) eGFR (test code = mL/min/1.73m2 3136993218) CHUY (test code = CHUY) Association of Glomerular Filtration Rate (GFR) and Staging of Kidney Disease* + --+ --+ ------+| GFR (mL/min/1.73 m2) ?| With Kidney Damage ?| ?Without Kidney Damage+ --------+ --------+ +| ?>90 ?| ?Stage one ?| ? Normal ?+ ---+ ---+ -------+| ?60-89 ?| ?Stage two ?| ? Decreased GFR ? + --+ --+ ------+| ?30-59 ?| ?Stage three ?| ? Stage three ? + --+ --+ ------+| ?15-29 ?| ?Stage four ? | ? Stage four ?+ ---+ ---+ -------+| ?<15 (or dialysis) ? ?| ?Stage five ? | ? Stage five ?+ ---+ ---+ -------+ *Each stage assumes the associated GFR level has been in effect for at least three months. ?Stages 1 to 5, with or without kidney disease, indicate chronic kidney disease. Notes: Determination of stages one and two (with eGFR >59mL/min/1.73 m2) requires estimation of kidney damage for at least three months as defined by structural or functional abnormalities of the kidney, manifested by either:Pathological abnormalities or Markers of kidney damage (including abnormalities in the composition of the blood or urine or abnormalities in imaging tests). Lab Interpretation Abnormal (test code = 41640-8) [facility] WITH [id number] 08:34:16 Test Item Value Reference Range Interpretation Comments WBC (test code = See_Comment [Automated 7226-2) message] The sy stem which generated this result transmitted reference range : 4.20 - 10.70 10*3/?L. The reference range was not used to interpret this result as normal/abnormal . RBC (test code = See_Comment L [Automated 789-8) message] The sy stem which generated this result transmitted reference range : 4.26 - 5.52 10*6/?L. The reference range was not used to interpret this result as normal/abnormal . HGB (test code = 13.8 g/dL 12.2-16.4 718-7) HCT (test code = 37.5 % 38.4-49.3 L 4544-3) MCV (test code = 96.4 fL 81.7-95.6 H 787-2) MCH (test code = 35.5 pg 26.1-32.7 H 785-6) MCHC (test code = 36.8 g/dL 31.2-35.0 H 786-4) RDW-SD (test code = 51.4 fL 38.5-51.6 69215-3) RDW-CV (test code = 14.6 % 12.1-15.4 788-0) PLT (test code = See_Comment [Automated 777-3) message] The sy stem which generated this result transmitted reference range : 150 - 328 10*3/ ?L. The reference r sonam was not used to interpret this result as normal/abnormal . MPV (test code = 10.6 fL 9.8-13.0 67197-5) NRBC/100 WBC (test See_Comment [Automat ed code = 0467782217) message] The system which generated this result transmitted reference range : 0.0 - 10.0 /100 WBCs. The refer ence range was not u sed to interpret th is result as normal/abnormal . NRBC x10^3 (test code <0.01 See_Comment [Auto mated = 6153425854) message] The s ystem which generated this result transmitted reference range : 10*3/?L. The reference range was not used to interpret this result as normal/abnormal . GRAN MAT (NEUT) % 53.8 % (test code = 770-8) IMM GRAN % (test code 0.20 % = 1170648230) LYMPH % (test code = 34.6 % 736-9) MONO % (test code = 7.1 % 5905-5) EOS % (test code = 3.7 % 713-8) BASO % (test code = 0.6 % 706-2) GRAN MAT x10^3(ANC) 2.88 10*3/uL 1.99-6.95 (test code = 6207959969) IMM GRAN x10^3 (test <0.03 0.00-0.06 code = 3158221222) LYMPH x10^3 (test code 1.85 10*3/uL 1.09-3.23 = 731-0) MONO x10^3 (test code 0.38 10*3/uL 0.36-1.02 = 742-7) EOS x10^3 (test code = 0.20 10*3/uL 0.06-0.53 711-2) BASO x10^3 (test code 0.03 10*3/uL 0.01-0.09 = 704-7) Lab Interpretation Abnormal (test code = 36152-8) [facility] - Draw immediately prior to the 5TH dose, but, no more than 60 minutes before the 5TH dose. 2020-09-23 04:51:35 Test Item Value Reference Range Interpretation Comments VANCO TROUGH (test code 9.7 ug/mL 10.0-20.0 L = 7741376280) CHUY (test code = CHUY) Toxic Range: ?>20 ug/mL 15-20 ug/mL is recommended for severe infection or when Vancomycin RUBI is greater than or equal to 2. Lab Interpretation (test Abnormal code = 82274-7) [facility]LAB ONLY COVID [id number] 01:36:24COVID DMT InterpretationInterpretation/Recommendations: Molecular NAAT Tests for Active Infection with the SARS-CoV-2 Virus: The patient has currently tested negative for the SARS-CoV-2 virus that causes COVID-19 illness. This most likely indicates that the patient does not have an active infection with the SARS-CoV-2 virus. However, infection is not completely ruled out as the false negative rate for molecular NAAT testing using a nasopharyngeal sample can be up to 30%, mostly dependent on the timing of sample collection in relation to illness onset and any deficiencies in sampling techniques. If the patient has symptoms concerning for COVID-19 illness, a repeat NAAT test (PCR, Rapid ID Now, etc.) should be performed, at which time the SARS-CoV-2 virus - if present - may have reached a detectable viral load (usually peaking by the end of the first week of symptoms). Tests for IgM and/or IgGAntibodies to the SARS-CoV-2 Virus: If the patient develops COVID-19 illness in the future, testingfor IgM and IgG antibodies approximately 3 weeks after illness onset will likely indicate if the patient has produced antibodies to the SARS-CoV-2 virus. However, some patients may take longer to develop detectable antibodies, while some patients who were infected with SARS-CoV-2 may never develop antibodies. While antibodies to SARS-CoV-2 may provide some degree of immunity, at this time the strength and duration of the antibody response is unknown. ? ? Interpretation Result Comments:These interpretation comments are basedupon all COVID-19 testing the patient has had at [facility], including molecular NAAT testing (more commonly known as PCR testing and Rapid ID Now testing) and antibody testing. It does not take into accountany testing that a patient has had outside of the [facility] medical record. [facility] LABORATORY SERVICESCOVID FermopaWPGI-HdZ-3 Rapid ID NOW (no units) ? ? Date ? Value ? 09/21/2020 ? Not Detected ? [facility]ORAT[facility] HospitalC-REACTIVE [id number] 15:16:33 Test Item Value Reference Range Interpretation Comments CRP (test code = 3469541387) 0.1 mg/dL <0.8 Lab Interpretation (test code = Normal 08513-7) [facility] HospitalN-TERMINAL [id number] 10:21:40 Test Item Value Reference Range Interpretation Comments NT-proBNP (test code 374 pg/mL See_Comment H [Autom ated = 0429094999) message] The system which generated this result transmitted reference range : <=125. The reference range was not used to interpret this result as normal/abnormal . CHUY (test code = CHUY) Biotin has been reported to cause a negative bias, interpret results relative to patient's use of biotin. Lab Interpretation Abnormal (test code = 11480-0) [facility] HospitalMAGNESIUM2021-06-22 10:15:13 Test Item Value Reference Range Interpretation Comments MAGNESIUM (test code = 0646632403) 1.7 mg/dL 1.7-2.4 Lab Interpretation (test code = Normal 63613-8) [facility] HospitalCOMP. METABOLIC PANEL (40659)2020-09-22 10:14:58 Test Item Value Reference Range Interpretation Comments NA (test code = 136 mmol/L 135-145 6170790861) K (test code = 3.9 mmol/L 3.5-5.0 4977936199) CL (test code = 106 mmol/L 98-108 6692297014) CO2 TOTAL (test code = 23 mmol/L 23-31 9560463499) AGAP (test code = 2-16 7806609646) BUN (test code = 10 mg/dL 7-23 7446449391) GLUCOSE (test code = 84 mg/dL 70-110 6767281624) CREATININE (test code = 0.80 mg/dL 0.60-1.25 6034331626) TOTAL BILI (test code = 1.2 mg/dL 0.1-1.1 H 8288866969) CALCIUM (test code = 9.1 mg/dL 8.6-10.6 1115107594) T PROTEIN (test code = 6.8 g/dL 6.3-8.2 6245140006) ALBUMIN (test code = 3.4 g/dL 3.5-5.0 L 7706346452) ALK PHOS (test code = 63 U/L 34-122 0306219910) ALTv (test code = 28 U/L 5-50 1742-6) AST(SGOT) (test code = 82 U/L 13-40 H 1827904656) eGFR (test code = mL/min/1.73m2 5455853706) CHUY (test code = CHUY) Association of Glomerular Filtration Rate (GFR) and Staging of Kidney Disease* + --+ --+ ------+| GFR (mL/min/1.73 m2) ?| With Kidney Damage ?| ?Without Kidney Damage+ --------+ --------+ +| ?>90 ?| ?Stage one ?| ? Normal ?+ ---+ ---+ -------+| ?60-89 ?| ?Stage two ?| ? Decreased GFR ? + --+ --+ ------+| ?30-59 ?| ?Stage three ?| ? Stage three ? + --+ --+ ------+| ?15-29 ?| ?Stage four ? | ? Stage four ?+ ---+ ---+ -------+| ?<15 (or dialysis) ? ?| ?Stage five ? | ? Stage five ?+ ---+ ---+ -------+ *Each stage assumes the associated GFR level has been in effect for at least three months. ?Stages 1 to 5, with or without kidney disease, indicate chronic kidney disease. Notes: Determination of stages one and two (with eGFR >59mL/min/1.73 m2) requires estimation of kidney damage for at least three months as defined by structural or functional abnormalities of the kidney, manifested by either:Pathological abnormalities or Markers of kidney damage (including abnormalities in the composition of the blood or urine or abnormalities in imaging tests). Lab Interpretation Abnormal (test code = 53918-5) [facility] with [id number] 09:55:33 Test Item Value Reference Range Interpretation Comments WBC (test code = See_Comment [Automated 7990-2) message] The sy stem which generated this result transmitted reference range : 4.20 - 10.70 10*3/?L. The reference range was not used to interpret this result as normal/abnormal . RBC (test code = See_Comment L [Automated 089-8) message] The sy stem which generated this result transmitted reference range : 4.26 - 5.52 10*6/?L. The reference range was not used to interpret this result as normal/abnormal . HGB (test code = 13.4 g/dL 12.2-16.4 718-7) HCT (test code = 37.0 % 38.4-49.3 L 4544-3) MCV (test code = 97.4 fL 81.7-95.6 H 787-2) MCH (test code = 35.3 pg 26.1-32.7 H 785-6) MCHC (test code = 36.2 g/dL 31.2-35.0 H 786-4) RDW-SD (test code = 53.1 fL 38.5-51.6 H 58083-1) RDW-CV (test code = 14.8 % 12.1-15.4 788-0) PLT (test code = See_Comment [Automated 777-3) message] The sy stem which generated this result transmitted reference range : 150 - 328 10*3/ ?L. The reference r sonam was not used to interpret this result as normal/abnormal . MPV (test code = 10.3 fL 9.8-13.0 76632-2) NRBC/100 WBC (test See_Comment [Automat ed code = 1899457366) message] The system which generated this result transmitted reference range : 0.0 - 10.0 /100 WBCs. The refer ence range was not u sed to interpret th is result as normal/abnormal . NRBC x10^3 (test code <0.01 See_Comment [Auto mated = 2164589329) message] The s ystem which generated this result transmitted reference range : 10*3/?L. The reference range was not used to interpret this result as normal/abnormal . GRAN MAT (NEUT) % 50.6 % (test code = 770-8) IMM GRAN % (test code 0.20 % = 2193855989) LYMPH % (test code = 37.1 % 736-9) MONO % (test code = 7.8 % 5905-5) EOS % (test code = 3.8 % 713-8) BASO % (test code = 0.5 % 706-2) GRAN MAT x10^3(ANC) 2.93 10*3/uL 1.99-6.95 (test code = 1342117523) IMM GRAN x10^3 (test <0.03 0.00-0.06 code = 1722762586) LYMPH x10^3 (test code 2.15 10*3/uL 1.09-3.23 = 731-0) MONO x10^3 (test code 0.45 10*3/uL 0.36-1.02 = 742-7) EOS x10^3 (test code = 0.22 10*3/uL 0.06-0.53 711-2) BASO x10^3 (test code 0.03 10*3/uL 0.01-0.09 = 704-7) Lab Interpretation Abnormal (test code = 26852-8) [facility] HospitalPROCALCITONIN2021-06-22 07:53:38 Test Item Value Reference Range Interpretation Comments Procalcitonin (test 0.02 ng/mL <0.07 code = 0620828266) CHUY (test code = CHUY) INTERPRETATION OF PROCALCITONIN RESULTS IN ADULTS >= 18 YEARS OF AGE Initiation and discontinuation of antibiotics on patients with suspected or confirmed Lower Respiratory Tract Infection in Adults >= 18 years of age. + +-------- --------+ + -----+|Procalcitonin |Interpretation ?|Antibiotic ? ? |Considerations ? |ng/mL ? | ?|recommendation | ? + +-------- --------+ + -----+| <0.1 ? | Bacterial ? ? ?| Strongly ? ? ?| ? | ?| infection very | discouraged ? | Overruling: ? | ?| unlikely ? ? ? | ? | ? Clinically unstable ? ? ? + +-------- --------+ + ? High risk for adverse ? ? | <0.25 ?| Bacterial ? ? ?| Discouraged ? | ? outcome ? | ?| infection ? ? ?| ? | ? SEE IMPORTANT NOTE ?| ?| unlikely ? ? ? | ? | ? + +-------- --------+ + -----+| >=0.25 ? ? ? | Bacterial ? ? ?| Encouraged ? ?| ? | ?| infection ? ? ?| ? | ? | ?| likely ? | ? | Consider treatment failure ?+ +------- ---------+ -+ if levels does not decrease | >0.5 ? | Bacterial ? ? ?| Strongly ? ? ?| appropriately ? | ?| infection very | encouraged ? ?| ? | ?| likely ? | ? | ? + +-------- --------+ + -----+ Discontinuation of antibiotics in high-acuity patients with suspected or confirmed sepsis in Adults >= 18 years of age. + +-------- --------+ + -----+|Procalcitonin |Interpretation ?|Antibiotic ? ? |Considerations ? |ng/mL ? | ?|recommendation | ? + +-------- --------+ + -----+| <0.25 ?| Bacterial ? ? ?| Strongly ? ? ?| ? | ?| infection very | discouraged ? | Overruling: ? | ?| unlikely ? ? ? | ? | ? Clinically unstable ? ? ? + +-------- --------+ + ? High risk for adverse ? ? | <0.5 or drop | Bacterial ? ? ?| Discouraged ? | ? outcome ? | >80% from ? ?| infection ? ? ?| ? | ? SEE IMPORTANT NOTE ?| highest PCT ?| unlikely ? ? ? | ? | ? | level ?| ?| ? | ? + +-------- --------+ + -----+| >=0.5 ?| Bacterial ? ? ?| Encouraged ? ?| ? | ?| infection ? ? ?| ? | ? | ?| likely ? | ? | Consider treatment failure ?+ +------- ---------+ -+ if levels does not decrease | >1.0 ? | Bacterial ? ? ?| Strongly ? ? ?| appropriately ? | ?| infection very | encouraged ? ?| ? | ?| likely ? | ? | ? + +-------- --------+ + -----+ Percentage of drop of Procalcitonin calculation for Discontinuation of antibiotics in high-acuity patients with suspected or confirmed sepsis in Adults >= 18 years of age. ? Procalcitonin highest{}-Procalcitonin current{}Delta Procalcitonin = x100% ? Procalcitonin current {} IMPORTANT NOTE: Procalcitonin may be elevated without bacterial infection by physiologic stress related to trauma, mills, chronic dialysis, metastatic cancer, surgery in the past seven days, malaria, some fungal infections, and some forms of vasculitis. The interpretation algorithm may not apply to patients with immunosuppression (equivalent of >10 mg of prednisone daily), HIV with CD4 cell count < 350 cells/mm3, active malignancy on systemic chemotherapy, solid organ transplant or hematopoietic stem cell transplantation, or hospital acquired pneumonia. Additionally, some clinical trials of procalcitonin have excluded patients with shock requiring vasopressor use, acute respiratory failure requiring mechanical ventilation, or those with known lung abscess/empyema. For further information please refer to:[email or web address] Lab Interpretation Normal (test code = 11297-0) [facility] HospitalVITAMIN B12, [id number] 07:10:00 Test Item Value Reference Range Interpretation Comments VIT B12 (test code = 227 pg/mL 240-930 L 2889184814) CHUY (test code = CHUY) Biotin has been reported to cause a positive bias, interpret results relative to patient's use of biotin. Lab Interpretation (test Abnormal code = 11569-2) [facility] HospitalVITAMIN D, [id number] 06:56:53 Test Item Value Reference Range Interpretation Comments VIT D 25OH (test code = <13 25-80 L 63389-3) CHUY (test code = CHUY) Deficiency: <20 ng/mLInsufficiency: 20-24 ng/mLOptimal: 25-80 ng/mL Lab Interpretation (test Abnormal code = 16229-5) [facility] HospitalSEDIMENTATION [id number] 03:04:44 Test Item Value Reference Range Interpretation Comments ESR (test code = See_Comment [Automated message] 6757204272) The system [employer] generated this result transmitted ref erence range: 0 - 10 m m/HR. The reference r sonam was not used to interpret this result as normal/abnor mal. Lab Interpretation (test Normal code = 78264-0) [facility] HospitalPROTHROMBIN TIME / [id number] 02:43:47 Test Item Value Reference Range Interpretation Comments PROTIME PATIENT (test See_Comment [Auto mated message] code = 5964-2) The system ich generated this result transmitted ref erence range: 12.0 - 1 4.7 Seconds. The re ference range was not u sed to interpret this result as normal/abnor mal. INR (test code = 6301-6) Nor mal INR <1.1; Warfarin Therap eutic range 2.0 to 3. 0 or 2.5 to 3.5, dep ending upon the indica tions. Lab Interpretation (test Normal code = 22476-7) [facility] HospitalTHYROID STIMULATING [id number] 01:21:57 Test Item Value Reference Range Interpretation Comments TSH (test code = See_Comment [Automated message] 6196950665) The system [facility] h generated this result transmitted ref erence range: 0.45 - 4 .70 mIU/L. The refe rence range was not u sed to interpret this result as normal/abnor mal. Lab Interpretation (test Normal code = 66980-6) [facility] HospitalN-TERMINAL [id number] 01:00:16 Test Item Value Reference Range Interpretation Comments NT-proBNP (test code 48 pg/mL See_Comment [Autom ated = 2115167776) message] The system which generated this result transmitted reference range : <=125. The reference range was not used to interpret this result as normal/abnormal . CHUY (test code = CHUY) Biotin has been reported to cause a negative bias, interpret results relative to patient's use of biotin. Lab Interpretation Normal (test code = 87814-3) [facility] HospitalURIC [id number] 00:55:37 Test Item Value Reference Range Interpretation Comments URIC ACID (test code = 8309471175) 7.0 mg/dL 3.6-8.0 Lab Interpretation (test code = Normal 50552-2) [facility] HospitalPHOSPHORUS2021-06-22 00:55:32 Test Item Value Reference Range Interpretation Comments PHOSPHORUS (test code = 8247434058) 4.2 mg/dL 2.5-5.0 Lab Interpretation (test code = Normal 87055-2) [facility] HospitalMAGNESIUM2021-06-22 00:55:22 Test Item Value Reference Range Interpretation Comments MAGNESIUM (test code = 7737918483) 1.9 mg/dL 1.7-2.4 Lab Interpretation (test code = Normal 92012-2) [facility] HospitalCREATINE [id number] 00:55:17 Test Item Value Reference Range Interpretation Comments CK (test code = 9300553765) 116 U/L 33-194 Lab Interpretation (test code = Normal 74533-6) [facility] HospitalLIPID PANEL (68408)(TOTAL CHOLESTEROL, TRIGLYCERIDES, HDL)2020-09-22 00:50:55 Test Item Value Reference Range Interpretation Comments CHOL (test code = 149 mg/dL 120-200 4432142956) HDL (test code = 69 mg/dL >40 5581120057) HDLC RATIO (test code = See_Comment [Au tomated message] 5498596140) The system [employer] generated this result transmit evelia reference range : <=5.0. The refe rence range was not u sed to interpret th is result as normal/abnormal . TRIG (test code = 76 mg/dL 30-170 7032304572) LDL CHOL (test code = 65 mg/dL See_Comment [Auto mated message] 66088-6) The system [employer] generated this result transmit evelia reference range : <=160. The refe rence range was not u sed to interpret th is result as normal/abnormal . VLDL (test code = 15 mg/dL 5-60 6100572149) Lab Interpretation (test Normal code = 09086-9) [facility] HospitalLactic Acid Whole [id number] 20:01:20 Test Item Value Reference Range Interpretation Comments LACTIC ACID (test code = 1.98 mmol/L 0.50-2.20 5752510912) Lab Interpretation (test code = Normal 61061-8) [facility] HospitalCT FOOT LEFT WO [id number] 17:50:081. ?Diffuse skin thickening is again seen, consistent with cellulitis.2. ?No CT evidence of osteomyelitis. RL: 4131 End of report EXAM: CT FOOT LEFT WO CONTRAST HISTORY: 59 years old Male with L foot cellulitis and swelling, r/o abscessor osteo ORDERING PROVIDER: Dipak Levin TECHNIQUE: Multislice CT examination was performed of the left foot withmultiplanar reconstructions displayed in multiple window settings. Imagingwas performed without IV contrast material. All CT scans are performedusing dose optimization techniques as appropriateto the exam beingperformed. These techniques include automatic exposure control and/orstandardized protocols utilizing dose matching according to exam type andpatient size. COMPARISON: None FINDINGS: Bones: No acute fracture or dislocation. No cortical destruction oraggressive periosteal reaction. No o sseous destructive changes. Joints: Mild changes of the interphalangeal joints. Muscles/Tendons: Unremarkable Other: Diffuse skin thickening and subcutaneous edema. Although evaluationis limited on this noncontrast examination, no organized fluid collectionsare identified. No subcutaneous air. [facility], Radiant Results Inft User - 09/21/2020 12:51 PM CDTFormatting of this note might be different from theoriginal.EXAM: CT FOOT LEFT WO CONTRASTHISTORY: 59 years old Male with L foot cellulitis and swelling, r/o abscessor osteo ORDERING PROVIDER: Dipak LevinTECHNIQUE: Multislice CT examination was performed of the left foot withmultiplanar reconstructions displayed in multiple window settings. Imagingwas performed without IV contrast material. All CT scans are performedusing dose optimization techniques as appropriate to the exam beingperformed. These techniques include automatic exposure control and /orstandardized protocols utilizing dose matching according to exam type andpatient size.COMPARISON:NoneFINDINGS: Bones: No acute fracture or dislocation. No cortical destruction oraggressive periosteal reaction. No osseous destructive changes.Joints: Mild changes of the interphalangeal joints.Muscles/Tendons: UnremarkableOther: Diffuse skin thickening and subcutaneous edema. Although evaluationis limited on this noncontrast examination, no organized fluid collectionsare identified. No subcutaneous air.IMPRESSION1. Diffuse skin thickening is again seen, consistent with cellulitis.2. No CT evidence of osteomyelitis.RL: 4131 End of report [facility]Sc[facility] CenterGLYCOSYLATED HEMOGLOBIN (A1C)2020-09-21 17:21:44 Test Item Value Reference Range Interpretation Comments HGB A1C (test code = 5.5 % 4.0-5.7 4548-4) CHUY (test code = CHUY) Reference RangesNormal: <5.7%Prediabetes: 5.7 - 6.4%Diabetes: > 6.5% Lab Interpretation (test Normal code = 88004-8) [facility] HospitalXR FOOT 3+ VW [id number] 16:14:45 Soft tissue swelling. No radiographic evidence of osteomyelitis. Pleaseconsider MRI if there is clinical concern for osteomyelitis. No acute osseous abnormality. Preliminary Report Dictated by Resident: Katelynn Hunter MD., have reviewed this study and agree with the abovere port.XR FOOT 3+ VW BILATERAL HISTORY: 59 years-old Male; infection, left toes swelling and draining.COMPARISON: 04/19/2016. FINDINGS: Radiographs of the bilateral feet demonstrate soft tissue swelling aboutthe left foot. No underlying focal osteopenia or bony erosion is seen. Noacute fracture or disloc ation is noted. Fragmented posterior calcanealenthesophyte is seen. [facility], Radiant Results Inft User- 09/21/2020 11:15 AM CDT XR FOOT 3+ VW BILATERALHISTORY: 59 years-old Male; infection, left toes swelling and draining.COMPARISON: 04/19/2016. FINDINGS:Radiographs of the bilateral feet demonstrate soft tissue swelling aboutthe left foot. No underlying focal osteopenia or bony erosion is seen. Noacute fracture or dislocation is noted. Fragmented posterior calcanealenthesophyte is seen. IMPRESSIONSoft tissue swelling. No radiographic evidenceof osteomyelitis. Pleaseconsider MRI if there is clinical concern for osteomyelitis.No acute osseousabnormality. Preliminary Report Dictated by Resident: Katelynn Estevez MD., have reviewed this study and agree with the abovereport.[facility] HospitalB[facility] Panel (NA, K, CL, CO2, GLUCOSE, BUN, CREATININE, CA)2020-09-21 15:35:04 Test Item Value Reference Range Interpretation Comments NA (test code = 143 mmol/L 135-145 7918473108) K (test code = 3.7 mmol/L 3.5-5.0 3141733083) CL (test code = 110 mmol/L 98-108 H 0487533162) CO2 TOTAL (test code = 24 mmol/L 23-31 7260953369) AGAP (test code = 2-16 8586401635) BUN (test code = 10 mg/dL 7-23 9996553321) GLUCOSE (test code = 115 mg/dL 70-110 H 2783106901) CREATININE (test code = 0.89 mg/dL 0.60-1.25 5729010883) CALCIUM (test code = 8.5 mg/dL 8.6-10.6 L 9685274438) eGFR (test code = mL/min/1.73m2 3613420961) CHUY (test code = CHUY) Association of Glomerular Filtration Rate (GFR) and Staging of Kidney Disease* + --+ --+ ------+| GFR (mL/min/1.73 m2) ?| With Kidney Damage ?| ?Without Kidney Damage+ --------+ --------+ +| ?>90 ?| ?Stage one ?| ? Normal ?+ ---+ ---+ -------+| ?60-89 ?| ?Stage two ?| ? Decreased GFR ? + --+ --+ ------+| ?30-59 ?| ?Stage three ?| ? Stage three ? + --+ --+ ------+| ?15-29 ?| ?Stage four ? | ? Stage four ?+ ---+ ---+ -------+| ?<15 (or dialysis) ? ?| ?Stage five ? | ? Stage five ?+ ---+ ---+ -------+ *Each stage assumes the associated GFR level has been in effect for at least three months. ?Stages 1 to 5, with or without kidney disease, indicate chronic kidney disease. Notes: Determination of stages one and two (with eGFR >59mL/min/1.73 m2) requires estimation of kidney damage for at least three months as defined by structural or functional abnormalities of the kidney, manifested by either:Pathological abnormalities or Markers of kidney damage (including abnormalities in the composition of the blood or urine or abnormalities in imaging tests). Lab Interpretation Abnormal (test code = 60539-1) [facility] (ALB, T.PRO, BILI T, BU/BC, ALT, AST, ALK PHOS)2020-09-21 15:35:03 Test Item Value Reference Range Interpretation Comments TOTAL BILI (test code = 4396987395) 0.6 mg/dL 0.1-1.1 BILI UNCON (test code = 9869317411) 0.4 mg/dL 0.1-1.1 BILI CONJ (test code = 9235824006) 0.0 mg/dL 0.0-0.3 T PROTEIN (test code = 3110702120) 6.9 g/dL 6.3-8.2 ALBUMIN (test code = 7755777969) 3.5 g/dL 3.5-5.0 ALK PHOS (test code = 7807356647) 65 U/L 34-122 ALTv (test code = 1742-6) 18 U/L 5-50 AST(SGOT) (test code = 7532363370) 46 U/L 13-40 H Lab Interpretation (test code = Abnormal 15018-6) [facility]OVID[facility] (ID NOW RAPID TESTING)2020-09-21 15:28:22 Test Item Value Reference Range Interpretation Comments SARS-CoV-2 Rapid ID NOW Not Detected Not Detected (test code = 44927-6) CHUY (test code = CHUY) ID NOW COVID-19 Assay is an isothermal nucleic acid amplification test intended for the qualitative detection of nucleic acid from SARS-CoV-2 viral RNA in nasopharyngeal (MEDICAL IMAGING SPECIALIST) specimens. It is used under Emergency Use Authorization (EUA) by FDA. The limit of detection (LOD) of the assay is 125 Genome Equivalents/mL. A positive result is indicative of the presence of SARS-CoV-2 RNA. ?Clinical correlation with patient history and other diagnostic information is necessary to determine patient infection status. A negative (Not Detected) result does not preclude SARS-CoV-2 infection. In patients with clinical symptoms and other tests that are consistent with SARS-CoV-2 infection, negative results should be treated as presumptive negative and a new specimen should be tested with alternative PCR molecular test. Invalid: Please collect a new specimen for repeat patient testing if clinically indicated. Lab Interpretation Normal (test code = 59981-9) [facility] HospitalCBC with [id number] 15:13:43 Test Item Value Reference Range Interpretation Comments WBC (test code = See_Comment [Automated 6690-2) message] The sy stem which generated this result transmitted reference range : 4.20 - 10.70 10*3/?L. The reference range was not used to interpret this result as normal/abnormal . RBC (test code = See_Comment L [Automated 789-8) message] The sy stem which generated this result transmitted reference range : 4.26 - 5.52 10*6/?L. The reference range was not used to interpret this result as normal/abnormal . HGB (test code = 13.9 g/dL 12.2-16.4 718-7) HCT (test code = 38.4 % 38.4-49.3 4544-3) MCV (test code = 98.2 fL 81.7-95.6 H 787-2) MCH (test code = 35.5 pg 26.1-32.7 H 785-6) MCHC (test code = 36.2 g/dL 31.2-35.0 H 786-4) RDW-SD (test code = 54.4 fL 38.5-51.6 H 84047-3) RDW-CV (test code = 15.4 % 12.1-15.4 788-0) PLT (test code = See_Comment [Automated 777-3) message] The sy stem which generated this result transmitted reference range : 150 - 328 10*3/ ?L. The reference r sonam was not used to interpret this result as normal/abnormal . MPV (test code = 9.4 fL 9.8-13.0 L 67090-5) NRBC/100 WBC (test See_Comment [Automat ed code = 0835481312) message] The system which generated this result transmitted reference range : 0.0 - 10.0 /100 WBCs. The refer ence range was not u sed to interpret th is result as normal/abnormal . NRBC x10^3 (test code <0.01 See_Comment [Auto mated = 8942194334) message] The s ystem which generated this result transmitted reference range : 10*3/?L. The reference range was not used to interpret this result as normal/abnormal . GRAN MAT (NEUT) % 49.8 % (test code = 770-8) IMM GRAN % (test code 0.20 % = 9938335584) LYMPH % (test code = 39.0 % 736-9) MONO % (test code = 5.6 % 5905-5) EOS % (test code = 4.6 % 713-8) BASO % (test code = 0.8 % 706-2) GRAN MAT x10^3(ANC) 2.60 10*3/uL 1.99-6.95 (test code = 6028608243) IMM GRAN x10^3 (test <0.03 0.00-0.06 code = 2879833982) LYMPH x10^3 (test code 2.03 10*3/uL 1.09-3.23 = 731-0) MONO x10^3 (test code 0.29 10*3/uL 0.36-1.02 L = 742-7) EOS x10^3 (test code = 0.24 10*3/uL 0.06-0.53 711-2) BASO x10^3 (test code 0.04 10*3/uL 0.01-0.09 = 704-7) Lab Interpretation Abnormal (test code = 04729-4) [facility] HospitalLactic Acid Whole [id number] 15:10:44 Test Item Value Reference Range Interpretation Comments LACTIC ACID (test code = 2.59 mmol/L 0.50-2.20 H 3441480114) Lab Interpretation (test code = Abnormal 72955-5) [facility] HospitalLaceration [id number] 03:47:00Hardik Jackson MD ? ? 06/27/2020 10:50 PMLaceration RepairPerformed by: Hardik Jackson MDAuthorized by: Hardik Jackson MD Consent: ?Consent obtained: ?Verbal ?Consent given by: ?Patient ?Risks discussed: ?Infection, need for additional repair, nerve damage, pain, poor cosmetic result, poor wound healing, retained foreign body, tendon damage and vascular damage ?Alternatives discussed: ?No tr eatmentAnesthesia (see MAR for exact dosages): ?Anesthesia method: ?Local infiltration ?Local anesthetic: ?Lidocaine 1% WITH epiLaceration details: ?Location: ?Face ?Face location: ?L eyebrow ?Length(cm): ?3.5 ?Depth (mm): ?0.5Repair type: ?Repair type: ?ComplexPre-procedure details: ?Preparation: ?Patient was prepped and draped in usual sterile fashionExploration: ?Limited defect created (wound extended): yes ? ?Hemostasis achieved with: ?Epinephrine and direct pressure ?Wound exploration: entire depth of wound probed and visualized ? ?Wound extent: fascia violated ? ?Contaminated: no ?Treatment: ?Area cleansed with: ?Betadine and Hibiclens ?Amount of cleaning: ?Extensive ?Irrigation solution: ?Sterile saline ?Irrigation method: ?Pressure wash ?Visualized foreign bodies/material removed: no ? ?Debridement: ?None ?Undermining: ?Extensive ?Scar revision: yes ?Subcutaneous repair: ?Suture s ize: ?6-0 ?Suture material: ?Vicryl ?Number of sutures: ?4Skin repair: ?Repair method: ?Sutures ?Suture size: ?5-0 ?Suture material: ?Prolene ?Suture technique: ?Simple interrupted ?Number of sutures:?7Approximation: ?Approximation: ?ClosePost-procedure details: ?Dressing: ?Antibiotic ointment andnon-adherent dressing ?Patient tolerance of procedure: ?Tolerated well, no immediate complicationsUnScenic Mountain Medical Center"
--- NOTE | 2021-04-29 19:35 | RAD REPORT ---
EXAM DESCRIPTION: Tucker Single View04/29/2021 7:15 pm CLINICAL HISTORY: Shortness of breath/edema COMPARISON: none FINDINGS: 6 millimeter nodular opacity overlies right lung base. This may represent confluence of r ibs and vessels or pulmonary nodule. Follow-up chest x-ray 3 months recommended for re-evaluation. Manner lungs appear clear of acute infiltrate. Small calcified hilar lymph nodes are present. Heart is normal size
--- NOTE | 2021-04-29 20:17 | RAD REPORT ---
EXAM DESCRIPTION: USExtrem Venous W Compress Bil04/29/2021 7:47 pm CLINICAL HISTORY: Leg swelling COMPARISON: none FINDINGS: The common femoral, superficial femoral, popliteal and posterior tibial veins bilaterally are compressible and demonstrate augmentation. Doppler demonstrates good flow. 4.5 x 1.2 centimeter right inguinal lymph node IMPRESSION: No evidence of deep venous thrombosis involving either lower extremity. 4.5 x 1.2 centimeter right inguinal lymph node is nonspecific. Follow-up ultrasound in 2 months recom mended to assess stability/resolution
[2021-04-29 20:18] LABS: Absolute Lymphocytes (CBC) 1.8 K/uL (0.7-4.9); Hematocrit 44.2 % (39.6-49.0); Lymphocytes % 31.8 % (15.3-44.8); MPV 7.4 fL (7.6-11.3); RBC Red Blood Cell Count 4.35 M/uL (4.33-5.43)
[2021-04-29 20:23] LABS: Protime INR 0.98
[2021-04-29] MEDS ORDERED: lisinopriL 20 MG TAB ONE (20:25)
[2021-04-29] MEDS ORDERED: AMLODIPINE 5 MG TAB ONE (20:25)
[2021-04-29 20:50] LABS: Albumin 2.8 g/dL (3.4-5.0); Bilirubin Direct 0.1 mg/dL (0-0.2); Bilirubin Total 0.4 mg/dL (0.2-1.0); Magnesium 2.1 mg/dL (1.8-2.4); Potassium 3.8 mmol/L (3.5-5.1); Troponin High Sensitivity 12.6 pg/mL (<58.9)
--- NOTE | 2021-04-29 21:59 | EDPHYS ---
Physician Documentation [facility] Name: Hesham Hurst Age: 60 yrs Sex: Male : 1960 Arrival Date: 04/29/2021 Time: 18:25 Bed 7 Private MD: Saman Mills ED Physician Gonzalo Pickard HPI: 04/29 18:48 This 60 yrs old Black Male presents to ER via Ambulatory with complaints of Feet jmm Swelling. 18:48 The patient presents with an injury, swelling. Onset: The symptoms/episode jmm began/occurred gradually. This is a 60-year-old male with history of hypertension and peripheral vascular disease and presents to the emergency department with complaints of leg swelling. Patient states he has not taken his prescribed medications 4 weeks. Denies shortness of breath or chest pain.. Historical: - Allergies: 18:35 No Known Allergies; ld1 - Home Meds: 18:35 Lisinopril Oral [Active]; Hydrochlorothiazide Oral [Active]; ld1 18:36 Aspirin Oral [Active]; atorvastatin oral [Active]; amlodipine oral [Active]; Cephalexin ld1 Oral [Active]; - PMHx: 18:35 Hypertensive disorder; ld1 - PSHx: 18:35 None; ld1 - Immunization history:: Adult Immunizations up to date, Client reports having NOT received the Covid vaccine. - Social history:: Smoking status: Patient reports the use of cigarette tobacco products, smokes one pack cigarettes per day. Patient uses alcohol, on a daily basis. ROS: 18:48 Constitutional: Negative for fever, chills, and weight loss, Cardiovascular: Negative jmm for chest pain, palpitations, and edema, Respiratory: Negative for shortness of breath, cough, wheezing, and pleuritic chest pain. 18:48 MS/extremity: Positive for swelling. 18:48 All other systems are negative. Exam: 18:48 Constitutional: This is a well developed, well nourished patient who is awake, alert, jmm and in no acute distress. Head/Face: atraumatic. Eyes: EOMI, no conjunctival erythema appreciated ENT: Moist Mucus Membranes Neck: Trachea midline, Supple Chest/axilla: Normal chest wall appearance and motion. Cardiovascular: Regular rate and rhythm. No edema appreciated Respiratory: Normal respirations, no respiratory distress appreciated Abdomen/GI: Non distended, soft Back: Normal ROM Skin: General appearance color normal 18:48 Musculoskeletal/extremity: Pedal edema noted bilaterally, dorsalis pedis pulse noted bilaterally, compartments are soft, neurovascular intact. 18:48 Skin: Appearance: Color: normal in color. 18:48 Neuro: Orientation: is normal, Mentation: is normal, Memory: is normal. 18:48 Psych: Behavior/mood is pleasant, cooperative. Vital Signs: 18:33 BP 160 / 109; Pulse 85; Resp 18; Temp 97.9(TE); Pulse Ox 97% on R/A; Weight 71.21 kg; ld1 Height 6 ft. 2 in. (187.96 cm); Pain 5/10; 20:07 BP 183 / 96; Pulse 71; Resp 18; Pulse Ox 96% ; mk 21:00 BP 178 / 100; Pulse 67; Resp 18; Pulse Ox 99% on R/A; ld1 21:00 BP 174 / 86; Pulse 69; Resp 19; Pulse Ox 97% on R/A; ld1 18:33 Body Mass Index 20.16 (71.21 kg, 187.96 cm) ld1 [place] Coma Score: 20:07 Eye Response: spontaneous(4). Verbal Response: oriented(5). Motor Response: obeys mk commands(6). Total: 15. MDM: 18:48 Patient medically screened. [facility] 21:58 Data reviewed: vital signs, nurses notes. Counseling: I had a detailed discussion with oswald the patient and/or guardian regarding: the historical points, exam findings, and any diagnostic results supporting the discharge/admit diagnosis, lab results, radiology results, the need for outpatient follow up, to return to the emergency department if symptoms worsen or persist or if there are any questions or concerns that arise at home. 04/29 18:49 Order name: Basic Metabolic Panel; Complete Time: 21:03 [facility] 04/29 18:49 Order name: CBC with Diff; Complete Time: 20:21 [facility] 04/29 18:49 Order name: LFT's; Complete Time: 21:03 [facility] 04/29 18:49 Order name: Magnesium; Complete Time: 21:03 [facility] 04/29 18:49 Order name: NT PRO-BNP; Complete Time: 21:03 [facility] 04/29 18:49 Order name: PT-INR; Complete Time: 20:25 [facility] 04/29 18:49 Order name: Troponin HS; Complete Time: 21:03 [facility] 04/29 18:49 Order name: XRAY Chest (1 view); Complete Time: 19:39 [facility] 04/29 18:49 Order name: EKG; Complete Time: 18:50 [facility] 04/29 18:49 Order name: Cardiac monitoring; Complete Time: 19:02 [facility] 04/29 18:49 Order name: US Extremity Venous W Compression [place]; Complete Time: 20:20 [facility] 04/29 19:21 Order name: COVID-19 SARS RT PCR (Document "Date of Onset" if Symptomatic); Complete ej Time: 20:04/29 18:49 Order name: EKG - Nurse/Tech; Complete Time: 19:02 [facility] 04/29 18:49 Order name: IV Saline Lock; Complete Time: 19:02 [facility] 04/29 18:49 Order name: Labs collected and sent; Complete Time: 19:02 [facility] 04/29 18:49 Order name: O2 Per Protocol; Complete Time: 19:35 [facility] 04/29 18:49 Order name: O2 Sat Monitoring; Complete Time: 19:35 [facility] 04/29 20:07 Order name: Labs - recollect needed; Complete Time: 20:28 tw5 Administered Medications: 20:25 Drug: Lisinopril 40 mg Route: PO; sm5 20:25 Drug: amLODIPine 5 mg Route: PO; sm5 Disposition: 04/30 07:29 Co-signature as Attending Physician, Gonzalo Pickard MD I agree with the assessment and kdr plan of care. Disposition Summary: 04/29/21 21:59 Discharge Ordered Location: Home [facility] Condition: Stable [facility] Diagnosis - Edema [facility] Followup: [facility] - With: Saman Mills MD - When: 1 - 2 days - Reason: Recheck today's complaints, Continuance of care, Re-evaluation by your physician Discharge Instructions: - Discharge Summary Sheet [facility] - Peripheral Edema [facility] Forms: - Medication Reconciliation Form [facility] - Thank You Letter [facility] - Antibiotic Education [facility] - Prescription Opioid Use [facility] Prescriptions: - furosemide 40 mg Oral tablet - take 1 tablet by ORAL route once daily; 10 tablet; Refills: 0, Product [facility] Selection Permitted Signatures: Dispatcher [employer] Gonzalo Oconnor MD MD kdr Mikael Santos PA PA jmm Dibbern, Lauren RN RN ld1 Kitty Lugo 5 Kristy Redding RN RN sm5
--- NOTE | 2021-04-29 21:59 | ER ---
Nurse's Notes [facility] Name: Hesham Hurst Age: 60 yrs Sex: Male : 1960 Arrival Date: 04/29/2021 Time: 18:25 Bed 7 Private MD: Saman Mills Diagnosis: Edema Presentation: 04/29 18:33 Chief complaint: Patient states: PT received a stent in his right left last year. C/O ld1 swelling in legs X 2 weeks. FADI foot pain. Coronavirus screen: At this time, the client does not indicate any symptoms associated with coronavirus-19. Ebola Screen: No symptoms or risks identified at this time. Initial Sepsis Screen: Does the patient meet any 2 criteria? No. Patient's initial sepsis screen is negative. Does the patient have a suspected source of infection? No. Patient's initial sepsis screen is negative. Risk Assessment: Do you want to hurt yourself or someone else? Patient reports no desire to harm self or others. Onset of symptoms was April 29, 2021. 18:33 Method Of Arrival: Ambulatory ld1 18:33 Acuity: NIHARIKA 3 ld1 Triage Assessment: 18:36 General: Appears in no apparent distress. comfortable, Behavior is calm, cooperative, ld1 appropriate for age. Pain: Complains of pain in right foot, left foot, right leg and left leg Pain does not radiate. Pain currently is 6 out of 10 on a pain scale. Quality of pain is described as stabbing, throbbing, Pain began gradually, Is continuous. Neuro: Level of Consciousness is awake, alert, obeys commands, Oriented to person, place, time, situation. Cardiovascular: Capillary refill < 3 seconds Patient's skin is warm and dry. Respiratory: Airway is patent Respiratory effort is even, unlabored, Respiratory pattern is regular, symmetrical. Derm:. Musculoskeletal: Swelling present in right leg and left leg. Historical: - Allergies: 18:35 No Known Allergies; ld1 - Home Meds: 18:35 Lisinopril Oral [Active]; Hydrochlorothiazide Oral [Active]; ld1 18:36 Aspirin Oral [Active]; atorvastatin oral [Active]; amlodipine oral [Active]; Cephalexin ld1 Oral [Active]; - PMHx: 18:35 Hypertensive disorder; ld1 - PSHx: 18:35 None; ld1 - Immunization history:: Adult Immunizations up to date, Client reports having NOT received the Covid vaccine. - Social history:: Smoking status: Patient reports the use of cigarette tobacco products, smokes one pack cigarettes per day. Patient uses alcohol, on a daily basis. Screenin:19 Abuse screen: Denies threats or abuse. Denies injuries from another. Nutritional ld1 screening: No deficits noted. Tuberculosis screening: No symptoms or risk factors identified. Fall Risk None identified. Assessment: 20:00 General: Appears in no apparent distress. Behavior is calm, cooperative. Pain: Denies ld1 pain. Neuro: No deficits noted. Level of Consciousness is awake, alert, Oriented to person, place, time, situation. Cardiovascular: Capillary refill < 3 seconds Patient's skin is warm and dry. Respiratory: No deficits noted. Airway is patent Trachea midline Respiratory effort is even, unlabored. Derm: Musculoskeletal: Swelling present in left leg and right leg and left foot and right foot. 21:05 Reassessment: No changes from previously documented assessment. ld1 22:00 Reassessment: No changes from previously documented assessment. ld1 Vital Signs: 18:33 BP 160 / 109; Pulse 85; Resp 18; Temp 97.9(TE); Pulse Ox 97% on R/A; Weight 71.21 kg; ld1 Height 6 ft. 2 in. (187.96 cm); Pain 5/10; 20:07 BP 183 / 96; Pulse 71; Resp 18; Pulse Ox 96% ; mk 21:00 BP 178 / 100; Pulse 67; Resp 18; Pulse Ox 99% on R/A; ld1 21:00 BP 174 / 86; Pulse 69; Resp 19; Pulse Ox 97% on R/A; ld1 18:33 Body Mass Index 20.16 (71.21 kg, 187.96 cm) ld1 [place] Coma Score: 20:07 Eye Response: spontaneous(4). Verbal Response: oriented(5). Motor Response: obeys mk commands(6). Total: 15. ED Course: 18:25 Patient arrived in ED. am2 18:25 Saman Mills MD is Private Physician. am2 18:35 Triage completed. ld1 18:36 [facility] 18:36 Gonzalo Pickard MD is Attending Physician. m 18:36 Arm band placed on right wrist. ld1 18:45 Inserted saline lock: 20 gauge in left antecubital area, using aseptic technique. Blood kj1 collected. 18:45 Initial lab(s) drawn, by me, sent to lab. kj1 19:06 Duke Kenyon, RN is Primary Nurse. bp 19:15 XRAY Chest (1 view) In Process Unspecified. EDMS 19:31 COVID-19 SARS RT PCR (Document "Date of Onset" if Symptomatic) Sent. ej 19:47 US Extremity Venous W Compression Fadi In Process Unspecified. EDMS 21:58 Saman Mills MD is Referral Physician. m 22:20 Placed in gown. Bed in low position. Call light in reach. Side rails up X2. Cardiac ld1 monitor on. Pulse ox on. NIBP on. 22:20 No provider procedures requiring assistance completed. IV discontinued, intact, ld1 bleeding controlled, No redness/swelling at site. Pressure dressing applied. Administered Medications: 20:25 Drug: Lisinopril 40 mg Route: PO; sm5 20:25 Drug: amLODIPine 5 mg Route: PO; sm5 Outcome: 21:59 Discharge ordered by MD. [facility] 22:20 Discharged to home ambulatory. ld1 22:20 Condition: stable 22:20 Discharge instructions given to patient, Instructed on discharge instructions, follow up and referral plans. medication usage, Demonstrated understanding of instructions, follow-up care, medications, Prescriptions given X 1. 22:23 Patient left the ED. ld1 Signatures: Dispatcher [employer] EDMS Mikael Santos PA PA jmm Moreno, Amanda am2 Duke Kenyon, RN RN Tiffanie Mcneil kj1 Terry Wisdom PA PA ej Dibbern, Lauren, RN RN ld1 Kristy Redding RN RN 5 Laure Lund RN RN mk Corrections: (The following items were deleted from the chart) 19:03 19:03 Initial lab(s) drawn, by me, sent to lab. kj1 kj1 22:18 20:06 Reassessment: sher ld1 22:18 22:16 General: ld1 ld1
[2021-04-29 22:32] VITALS: TEMP 97.9
[2021-04-29 22:35] VITALS: BP 174/86; O2SAT 97
== END 2021-04-29 22:23 | disposition home or self-care (01) ==
LOC: ER 18:21
DX: R60.9 Edema, unspecified (principal); I10 Essential (primary) hypertension; F17.210 Nicotine dependence, cigarettes, uncomplicated; Z20.822 Contact with and (suspected) exposure to COVID-19
CPT/HCPCS: 93005; 85025; 80048; 36415; 83735; 85610; 80076; 84484; 83880; 71045; 93970; 99284; U0003